=== PATIENT | male | born 1950 | race Hispanic/Latino ===

== ENCOUNTER 2020-10-31 17:30 | Emergency (ER) | payer OTHER ==
--- OUTSIDE RECORDS SUMMARY | 2020-10-31 17:34 | XMS REPORT | Continuity of Care Document ---
:1950 Author Organization [facility] t Address [address] [place] [address] Care Team Providers Name Role Phone NHAN TAVERAS Primary Care Physician Unavailable SKIP KILLIAN Attending Clinician Unavailable Dolores Killian MD Attending Clinician Ginny Botello MD Attending Clinician Chu GALEANO Attending Clinician CHU Attending Clinician Unavailable Monty DIAZ Attending Clinician Unavailable Yazan SMYTH Attending Clinician Jennifer DIAZ Attending Clinician Unavailable So GALEANO Attending Clinician Echo DIAZ Attending Clinician Unavailable ALCON Attending Clinician Unavailable Juan RN Attending Clinician Unavailable Alcon SO Attending Clinician Jessica DIAZ Attending Clinician Unavailable Dillard Attending Clinician DILLARD Attending Clinician Unavailable Darcy GALEANO Attending Clinician Unavailable DARCY Attending Clinician Unavailable Germaine DIAZ, K Attending Clinician Unavailable Dayne DIAZ, A Attending Clinician Unavailable Savannah DAVID Attending Clinician Unavailable Karla Mc MD Attending Clinician Savannah David MD Attending Clinician Millie GALEANO Attending Clinician Artemio DIAZ Attending Clinician Dolores KILLIAN Admitting Clinician Unavailable KARLA MC Admitting Clinician Unavailable Payers Payer Name Policy Type Policy Number Effective Date Expiration Date An[place] P[place] [id number] 2019 00:00:00 Problems Condition Condition Condition Status Onset Resolution Last Treating Co mments Source Name Details Category Date Date Treatment Clinician Date Hypertensi Hypertensi Disease Active M D on on 02-28 Anderso 00:00: n 00 Acute Acute Disease Active kidney kidney 02-28 Anderso failure failure 00:00: n 00 Bradycardi Bradycardi Disease Active M D a a 02-28 Anderso 00:00: n 00 Chronic Chronic Disease Active anemia anemia 1-10 Anderso 00:00: n 00 Hernia of Hernia of Disease Active abdominal abdominal 1-10 Noah rso wall wall 00:00: n 00 Personal Personal Disease Active Overview: history of history of 3-12 Added An derso colonic colonic 00:00: automatic n polyp polyp 00 ally from request for surgery [id number] Acquired Acquired Disease Active deformity deformity 6-07 Noah rso of pelvis of pelvis 00:00: n 00 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 Rafiq o of bone of of bone of 00:00: n hip hip 00 Peripheral Peripheral Disease Active M D neuropathi neuropathi 3-28 An derso c pain c pain 00:00: n 00 Hyperglyce Hyperglyce Disease Active M D josue josue 3-24 Anderso 00:00: n 00 Attention Attention Disease Active to to 2-04 Anderso colostomy colostomy 00:00: n 00 Rectal Rectal Disease Active [facility] 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 Family History Family Member Diagnosis Comments Start Date Stop Date Source Family member Coronary heart disease (CHD) MD Bea[place] Family member Diabetes MD Bea[place] Family member Hypertension MD [place] on Family member Stroke MD [place] Family member Venous thrombosis MD Hasmukh dunham Social History Social Habit Start Date Stop Date Quantity Comments Source History of tobacco Current every day MD [place] use smoker Sex Assigned At MD [place]roy on Exposure to Not sure MD Beavers SARS-CoV-2 (event) Cigarettes smoked 2020-10-25 2020-10-25 MD Noah alvarado current (pack per 00:00:00 00:00:00 day) - Reported Cigarette pack-years 2020-10-25 2020-10-25 MD Hasmukh dunham 00:00:00 00:00:00 Tobacco use and 2020-10-25 2020-10-25 Never used MD [place]roy on exposure 00:00:00 00:00:00 Alcohol intake 2020-10-25 2020-10-25 Current drinker MD Anna tabor 00:00:00 00:00:00 of alcohol (finding) Tobacco Comment 2017-10-04 2017-10-04 patient states he MD Beavers 00:00:00 00:00:00 smokes 4 cigs a day Alcohol Comment 2017-10-04 2017-10-04 6 beers (16 oz) MD Hasmukh dunham 00:00:00 00:00:00 per day Smoking Status Start Date Stop Date Source Current every day smoker 2020-10-25 00:00:00 MD [place] Medications Ordered Filled Start Stop Current Ordering Indication Dosage Frequency Signature Comments Components Source Medication Medication Date Date Medication? Clinician (SIG) Name Name peg Yes Colonoscopy Use as 3350-electr 3-31 planned directed A nderso olytes 00:00: by n (Golytely) 00 ordering [id number] provider. .74 g solution naproxen Yes TAKE 1 (NAPROSYN) 1-06 TABLET BY Noah rso 500 mg 00:00: MOUTH ONCE n tablet 00 DAILY AFTER A MEAL amLODIPine Yes TAKE 1 (NORVASC) 5 1-06 TABLET BY And erso mg tablet 00:00: MOUTH ONCE n 00 DAILY IN THE MORNING naproxen 2019-07- No Take by sodium 0-28 08-06 mouth as Anderso (ALEVE 09:56: 00:00 needed. n ORAL) 15 :00 irbesartan- 2018-07 Yes 1{tbl} Take 1 MD hydrochloro 2-20 tablet by And erso thiazide 00:00: mouth n (AVALIDE) 00 daily. 300-12.5 mg per tablet valsartan-h 2020- No 1{tbl} Take 1 M D ydrochlorot 6-22 08-07 tablet by An derso hiazide 00:00: 00:00 mouth n (DIOVAN-HCT 00 :00 daily. ) 320-25 mg per tablet omeprazole Yes 1{capsu Take 1 MD (PriLOSEC) 6-08 le} capsule by And erso 40 MG 00:00: mouth n capsule 00 daily. gabapentin Yes Peripheral 100mg Take 1 MD (NEURONTIN) 1-28 neuropathic capsule Anderso 100 mg 00:00: pain (100 mg) n capsule 00 by mouth twice daily. simvastatin Yes 1{tbl} Take 1 MD (ZOCOR) 40 8-23 tablet by Noah rso mg tablet 00:00: mouth n 00 daily. lisinopril Yes 40mg QD Take [address] (PRINIVIL,Z 7-15 by mouth [facility] - ESTRIL) 40 16:21: daily. Medic al [facility] tablet 36 Center simvastatin Yes 40mg QD Take [address] [facility] (ZOCOR) 40 7-15 by mouth [facility] tablet 16:21: daily. [facility] Immunizations Ordered Immunization Filled Immunization Date Status Commen ts Source Name Name Influenza (IM) 2016-08-11 Completed MD Arian roland Preservative Free 00:00:00 Vital Signs Vital Name Observation Time Observation Value Comments Source WEIGHT 2020-10-25 10:40:00 73.7 kg WEIGHT 2020-10-25 10:40:00 73.7 kg WEIGHT 2020-03-18 09:20:35 74.208 kg WEIGHT 2020-03-18 09:20:35 74.208 kg WEIGHT 2020-02-29 18:20:00 72.1 kg HEIGHT 2020-02-29 17:59:00 162 cm WEIGHT 2020-02-29 18:20:00 72.1 kg HEIGHT 2020-02-29 17:59:00 162 cm Heart rate 2020-10-25 18:05:00 62 /min MD Fran wayne Oxygen saturation in 2020-10-25 18:05:00 96 /min MD [place] Arterial blood by Pulse oximetry Systolic blood pressure 2020-10-25 18:00:00 157 mm[Hg] MD [place] Diastolic blood pressure 2020-10-25 18:00:00 78 mm[Hg] MD [place] Respiratory rate 2020-10-25 18:00:00 15 /min MD Hasmukh dunham Body temperature 2020-10-25 17:40:00 36.89 Rosana MD Hasmukh dunham Body weight 2020-10-25 15:40:00 73.7 kg MD Fran wayne BMI 2020-10-25 15:40:00 28.08 kg/m2 MD Fran wayne Body height 2020-02-29 22:59:00 162 cm MD Fran wayne Procedures Procedure Date / Time Performed Performing Clinician [facility] e PATHOLOGY BIOPSY 2020-10-25 17:16:00 Skip Killian MD on INTERPRETATION ENDOSCOPY NOTE RESULTS 2020-10-25 16:42:13 Skip Killian MD HC 2019-NCOV COVID-19 2020-10-02 19:39:00 Meir Sage MD And butch COMPLETE BLOOD COUNT W/ 2020-09-27 15:19:00 Sajan Rondon MD DIFFERENTIAL CARCINOEMBRYONIC ANTIGEN 2020-09-27 15:19:00 Sajan Rondon MD COMPREHENSIVE METABOLIC PANEL 2020-09-27 15:19:00 Robert Rondon MD Results CBC 2020-09-27 15:19:00 Sajan Rondon MD MANUAL DIFFERENTIAL 2020-09-27 15:19:00 Sajan Rondon MD GLUCOSE LEVEL 2020-09-27 15:19:00 Sajan Rondon MD BLOOD UREA NITROGEN 2020-09-27 15:19:00 Sajan Rondon MD ELECTROLYTE PANEL 2020-09-27 15:19:00 Sajan Rondon MD SERUM CREATININE 2020-09-27 15:19:00 Sajan Rondon MD .GLOMERULAR FILTRATION RATE 2020-09-27 15:19:00 Sajan Rondon MD CALCIUM LEVEL TOTAL 2020-09-27 15:19:00 Sajan Rondon MD Fran son ALBUMIN LEVEL 2020-09-27 15:19:00 Sajan Rondon MD ALKALINE PHOSPHATASE 2020-09-27 15:19:00 Sajan Rondon MD rson ALANINE AMINOTRANSFERASE 2020-09-27 15:19:00 Sajan Rondon MD ASPARTATE AMINOTRANSFERASE 2020-09-27 15:19:00 Sajan Rondon TOTAL PROTEIN 2020-09-27 15:19:00 Sajan Rondon MD FRACTIONATED BILIRUBIN 2020-09-27 15:19:[address] CHEST ABDOMEN PELVIS W 2020-03-17 21:34:27 Nhan Taveras MD CONTRAST COMPLETE BLOOD COUNT W/ 2020-03-17 18:58:00 Meir Sage MDrson DIFFERENTIAL COMPREHENSIVE METABOLIC PANEL 2020-03-17 18:58:00 Meir Sage MD Results CBC 2020-03-17 18:58:00 Meir Sage MD MANUAL DIFFERENTIAL 2020-03-17 18:58:00 Meir Sage MD [facility] GLUCOSE LEVEL 2020-03-17 18:58:00 Meir Sage MD ELECTROLYTE PANEL 2020-03-17 18:58:00 Meir Sage MD Anddomenicoo n SERUM CREATININE 2020-03-17 18:58:00 Meir Sage MD .GLOMERULAR FILTRATION RATE 2020-03-17 18:58:00 Meir Sage MD CALCIUM LEVEL TOTAL 2020-03-17 18:58:00 Meir Sage MD Fran son ALBUMIN LEVEL 2020-03-17 18:58:00 Meir Sage MD ALKALINE PHOSPHATASE 2020-03-17 18:58:00 Meir Sage MD rson ALANINE AMINOTRANSFERASE 2020-03-17 18:58:00 Meir Sage MD ASPARTATE AMINOTRANSFERASE 2020-03-17 18:58:00 Meir Sage TOTAL PROTEIN 2020-03-17 18:58:00 Meir Sage MD FRACTIONATED BILIRUBIN 2020-03-17 18:58:00 Meir Sage MD BLOOD UREA NITROGEN 2020-03-17 18:58:00 [facility]PREHENSIVE METABOLIC PANEL 2020-03-11 15:51:00 Robert Rondon MD GLUCOSE LEVEL 2020-03-11 15:51:00 Sajan Rondon MD BLOOD UREA NITROGEN 2020-03-11 15:51:00 Sajan Rondon MD [facility] ELECTROLYTE PANEL 2020-03-11 15:51:00 RondonSajan hurt MD SERUM CREATININE 2020-03-11 15:51:00 Sajan Rondon MD .GLOMERULAR FILTRATION RATE 2020-03-11 15:51:00 Sajan Rondon MD CALCIUM LEVEL TOTAL 2020-03-11 15:51:00 Sajan Rondon MD [facility] ALBUMIN LEVEL 2020-03-11 15:51:00 Sajan Rondon MD ALKALINE PHOSPHATASE 2020-03-11 15:51:00 Sajan Rondon MD [facility] ALANINE AMINOTRANSFERASE 2020-03-11 15:51:00 RondonSajan hurt MD ASPARTATE AMINOTRANSFERASE 2020-03-11 15:51:00 Sajan Rondon TOTAL PROTEIN 2020-03-11 15:51:00 Sajan Rondon MD FRACTIONATED BILIRUBIN 2020-03-11 15:51:00 Sajan Rondon MD BASIC METABOLIC PANEL, CALCIUM 2020-03-01 08:05:00 Teja Katz MD IONIZED MAGNESIUM LEVEL 2020-03-01 08:05:00 Teja Katz MD CALCIUM LEVEL TOTAL 2020-03-01 08:05:00 Teja Katz MD [facility] PHOSPHORUS LEVEL 2020-03-01 08:05:00 Teja Katz MD COMPLETE BLOOD COUNT W/ 2020-03-01 08:05:00 Teja [place] DIFFERENTIAL GLUCOSE LEVEL 2020-03-01 08:05:00 Teja Katz MD BLOOD UREA NITROGEN 2020-03-01 08:05:00 Teja Katz MD Fran [facility] ELECTROLYTE PANEL 2020-03-01 08:05:00 Teja Katz MD SERUM CREATININE 2020-03-01 08:05:00 Teja Katz MD .GLOMERULAR FILTRATION RATE 2020-03-01 08:05:00 Teja Katz MD CALCIUM IONIZED, VENOUS 2020-03-01 08:05:00 Teja Katz MD nderson Results CBC 2020-03-01 08:05:00 Teja Katz MD MANUAL DIFFERENTIAL 2020-03-01 08:05:00 Teja Katz MD Fran son URINALYSIS MICROSCOPIC 2020-03-01 02:20:00 Teja Katz MD PROTEIN / CREATININE RATIO 2020-03-01 02:20:00 Curtis Pinto URINE UREA NITROGEN URINE 2020-03-01 02:20:00 Curtis Pinto MD son URINALYSIS WITH MICROSCOPIC IF 2020-03-01 02:20:00 Cynthia David MD INDICATED COVID-19 (SARS-COV-2) 2020-02-29 19:20:00 Estelle Dior MD PCR-ASYMPTOMATIC MC US RENAL 2020-02-29 16:42:54 Xavier, Rochelle [place] on URINE CULTURE 2020-02-29 16:38:00 Xavier, Rochelle [place] on URINALYSIS WITH MICROSCOPIC IF 2020-02-29 16:38:00 Xavier, Rochelle [place] INDICATED SODIUM URINE 2020-02-29 16:38:00 Xavier, Rochelle [place] on CREATININE URINE, RANDOM 2020-02-29 16:38:00 Xavier, Rochelle [place] URINALYSIS MICROSCOPIC 2020-02-29 16:38:00 Xavier, Rochelle [place] BASIC METABOLIC PANEL, CALCIUM 2020-02-29 15:59:00 Xavier, Rochelle [place] TOTAL MAGNESIUM LEVEL 2020-02-29 15:59:00 Xavier, Rochelle [place] on PHOSPHORUS LEVEL 2020-02-29 15:59:00 Xavier, Rochelle Peters son GLUCOSE LEVEL 2020-02-29 15:59:00 Xavier, Rochelle [place] on BLOOD UREA NITROGEN 2020-02-29 15:59:00 Xavier, Rochelle ruizson ELECTROLYTE PANEL 2020-02-29 15:59:00 Xavier, Rochelle Zamora rson SERUM CREATININE 2020-02-29 15:59:00 Rochelle Mc MD Fran son .GLOMERULAR FILTRATION RATE 2020-02-29 15:59:00 Rochelle Mc MD CALCIUM LEVEL TOTAL 2020-02-29 15:59:00 Rochelle Mc MD derson POC CREATININE 2020-02-29 13:40:00 Rochelle Mc MD on COMPLETE BLOOD COUNT W/ 2020-02-29 13:13:00 Nhan Taveras MDrson DIFFERENTIAL BILIRUBIN TOTAL 2020-02-29 13:13:00 Nhan Taveras MD ALANINE AMINOTRANSFERASE 2020-02-29 13:13:00 Nhan Taveras MD ALKALINE PHOSPHATASE 2020-02-29 13:13:00 Nhan Taveras MD rson SERUM CREATININE 2020-02-29 13:13:00 Nhan Taveras MD BLOOD UREA NITROGEN 2020-02-29 13:13:00 Nhan Taveras MD Fran son CARCINOEMBRYONIC ANTIGEN 2020-02-29 13:13:00 Nhan Taveras MD IRON LEVEL 2020-02-29 13:13:00 Nhan Taveras MD FERRITIN LVL 2020-02-29 13:13:00 Nhan Taveras MD TRANSFERRIN 2020-02-29 13:13:00 Nhan Taveras MD VITAMIN B12 LEVEL 2020-02-29 13:13:00 Nhan Taveras MDo n FOLATE LEVEL 2020-02-29 13:13:00 Nhan Taveras MD Results CBC 2020-02-29 13:13:00 Nhan Taveras MD MANUAL DIFFERENTIAL 2020-02-29 13:13:00 Nhan Taveras MD Fran son SERUM CREATININE 2020-02-29 13:13:00 Nhan Taveras MD .GLOMERULAR FILTRATION RATE 2020-02-29 13:13:00 Nhan Taveras MD EKG, 12-LEAD (PORTABLE) 2020-02-29 00:00:00 Rochelle Mc COMPLETE BLOOD COUNT W/ 2019-12-28 13:20:00 Nhan Taveras MD nderson DIFFERENTIAL CARCINOEMBRYONIC ANTIGEN 2019-12-28 13:20:00 Nhan Taveras MD BILIRUBIN TOTAL 2019-12-28 13:20:00 Nhan Taveras MD ALANINE AMINOTRANSFERASE 2019-12-28 13:20:00 Nhan Taveras MD ALKALINE PHOSPHATASE 2019-12-28 13:20:00 Nhan Taveras MD Noah rson SERUM CREATININE 2019-12-28 13:20:00 Nhan Taveras MD BLOOD UREA NITROGEN 2019-12-28 13:20:00 Nhan Taveras MD Fran son Results CBC 2019-12-28 13:20:00 Nhan Taveras MD MANUAL DIFFERENTIAL 2019-12-28 13:20:00 Nhan Taveras MD son SERUM CREATININE 2019-12-28 13:20:00 Nhan Taveras MD .GLOMERULAR FILTRATION RATE 2019-12-28 13:20:00 Nhan Taveras MD Plan of Care Planned Activity Planned Date Details Comments Source Future Appointment 2023-10-26 00:00:00 Skip Killian MD, [address] [place] [address] Encounters Start End Encounter Admission Attending Care Care Encounter Source Date/Time Date/Time Type Type Clinicians Facility Department ID 2020-10-25 2020-10-25 Outpatient OSMAR KILLIAN MDA Princess/Hep/Nu [id number] 09:00:00 13:23:00 SKIP roland 2020-10-24 2020-10-24 Outpatient MEIR CASTANEDA MDA, MDA [id number] 07:27:57 07:27:57 Rafiq o luan 2020-10-03 2020-10-03 Outpatient MEIR CASTANEDA MDA, MDA [id number] 07:11:32 07:11:32 Rafiq o luan 2020-10-02 2020-10-02 Outpatient MEIR CASTANEDA MDA, MDA [id number] 13:22:33 13:42:30 Rafiq o luan 2020-09-30 2020-09-30 Outpatient MEIR CASTANEDA MDA, MDA [id number] 09:09:50 09:25:46 Rafiq o luan 2020-09-27 2020-09-27 Outpatient EL RONDON, MDA MDA [id number] 08:46:19 09:13:14 SAJAN roland 2020-03-22 2020-03-22 Outpatient EL DILLARD, MDA MDA [id number] 00:00:00 00:00:00 MECHE roland 2020-03-18 2020-03-18 Outpatient EL SHUREQINGI, MDA MDA [id number] 08:40:52 10:07:54 NHAN roland 2020-03-17 2020-03-17 Outpatient MEIR CASTANEDA MDA MDA [id number] 13:53:30 23:59:00 Rafiq roland 2020-03-17 2020-03-17 Outpatient EL SHUREIQI, MDA MDA [id number] 13:32:21 13:52:00 NHAN roland 2020-03-17 2020-03-17 Outpatient MEIR CASTANEDA MDA MDA [id number] 00:00:00 00:00:00 Rafiq roland 2020-03-11 2020-03-11 Outpatient OSMAR RONDON, MDA MDA [id number] 10:41:52 10:47:16 SAJAN roland 2020-03-04 2020-03-04 Outpatient EL RADHAUREQINGI, MDA MDA [id number] 00:00:00 00:00:00 NHAN roland 2020-03-03 2020-03-03 Outpatient EL SHUREIQI, MDA MDA [id number] 00:00:00 00:00:00 NHAN roland 2020-02-29 2020-03-01 Outpatient UR DAVID, MDA Emergency [id number] 10:25:00 14:57:00 DWIGHT roland 2020-02-29 2020-02-29 Emergency MDA MDA [id number] MD 10:50:01 10:50:01 Rafiq roland 2020-02-29 2020-02-29 Outpatient EL SHUREIQI, MDA MDA [id number] 08:16:00 10:24:00 NHAN roland 2020-02-29 2020-02-29 Outpatient EL SHUREIQI, MDA MDA [id number] 07:55:33 08:15:00 IMAD Rafiq o n Results Test Description Test Time Test Comments Results Result Comments Source Pathology Biopsy Interpretation 2020-10-30 16:49:00 Test Item Value Reference Range Interpretation Comme nts Addendum b8rlcWWwUTLcnHT1BzTsMTTcl2lvr0BdfOObkFUnFSoswEJasgQrty01qJI9cJ67LM2cCZLvOlK1DKDq cnO6Muo8SJLnYFXvjPCcJ322w0xth8dbriYooUR0hWjmTREnQLLpMKpyKFKzQlMcEMyzYOHboaUzGYHf MKXkrOvzjN6qrfxfRxEhkLw2SzH4NVIthC9qEYVcafO 1 (test tfgOdjVGpMOP6RZbuPIDgYNXggOBwgu9yqOUjQkCop6mmEXijJTDmHBmyRVCdYM0nxCSbcXjhwZV9tQX dQNjrD15ej8dmNAXfglDsgyMsYHodRAUnJHNDIQ6UUGCwcSNcrg0axHGbHTHubc0= code = 37) Submitted h7bndJFpYPBfwDU6EyRxFQOdz1vhd4LypKBsuXSbQWcynDZfhiCsuh07wQQ9eU82EQ8dKSKvBhI4AGLg gbL1Ncs2UTFyLCMtwVPzI017f8dtq9ictdUrtVB6TIKeJOS3TEjnirTsgmC6VQsijXLwYbV6P68peHVh ZOdvsIFrvvfjaaZyZWYaO7QyJFGfQECoyxUqawOvSIi Clinical nu6Mtmyuoz6JnK30jw99iAbEfh7y0oCCyXsi8ZvBwTI2jBXZcY9IypVVxUQ5kWMDpM9RbTX3mJ8ilYxL kbDDpSFUtc4MjELHACpnmSFBcW4dcMrXadKCxjJVmDQJpyt5= History (test code = 37904) Diagnosis h0qubIUcXDTwfOJ5UsYvQMUza6wja2TizTIjtAYeYQjwpBRowhBfrs27aBU7yX78RP5gAXJlDqU2GFQs lwT5Cip2CNGeYVKkxDSyM752r1rgz5fzlcPwzXT0GRBxHBB1IHygzhFuafUvYvs1XSB6uHjrYBFfWWAe VYlyXZCmSrQkUxzcDvCaALTAWmHXWL2MWcMVQVGQRFV (test JFSEfDExvZBEqOnUrFdPmITppOfHhrBKiVDO3PHXsbZ4rXEPbb9IzjkZlrjyeA90jw90qEQHeNlE5m4T gB72rhRHoaglyLvzkoXC5AtjkEIIeoFu8NzTgtIcwAhBwJNAbjM3koSYfsKAen5YaYTdmdMzvvIZblTa om7PbdIOgiqkcsPq5qLYcTBAnfYT3PUSps6Lqt8Kcuu code = elrFQddG8eBJCaj2XezPQiapU1gPDdqLwqoMidBUHoSN0whrQnpPNzoDRaLPQwwG9wgJ3bjBMzdCMhiG Sra2cxLANzdpPkwjVyC4LtevLbUPJcgZjowQmgeRQwfNDsK0VpXvcehH0fFM0gK1W8pVXhJEWqjrZeww IgvCacfRNvQB7bTBI5a6XtIANgDE3puIzqZAOZVPFNG 34) cChvY65kr1esPVqkeSdccPkSBhcqOg4SW8jjYAxQDFoZXNjc48iPA63BzVwkSogOZtySBBxmSatLCckp uNpCattD10wn94oIZMtAK1damHvb1YmE06ec74kRQXbHjE6z9IcH90veIDlupwiVcgubOP4WnctZCOnd Gw0GpHciHdjSbEvDMOgjG7ynNExcTEbt1DfARynkHxc wRQxiKirw3CzaLRzvokepKs3bJUrDZPjfWS2PXJaw6Ylg0EpixodlNWbsH6lTQYot5HnpLWzzeI5oCTd gHgdcDbvENZlurCzhfKjJ0PcwhAhAZNioAfciNopjIQwqWKbB2LdQncgeP8kMX8wC1T4aNYcIJHyrzSv uyQfiRduwECoTN4vDDY5g2EjZMKuGG1tzEwbUXZJIME vC53tsZUhdR4aaNKfHXWwytltmZMeyMbrPEBQYbFBg1hrdorjhJJafyT2NCUcBYLxc2cyebSnm9b2cGH shGVkELOir0SqtZaorXOsFMljPqNxIAnngnizZENXamRgrIFisDXio5PklGNcmKlhkoVuSJUwp98yyqy rVONad5PdYPNxRRC3lNQqQQNwnEY4gTEnsinzD8X7iM AuNWDjJ8Nxm0IxCNCpxeCsyKAqvE1iYEFvz3IawZMcfeN5pOGqwBpgcArpRxcuWUIeVPKSYKCxqC8ncA 0dv7YgeQ4rhSPcrsXhOWOmtrLsLTwogwIslARmXBgkOPrgcI1iCYR6SXTobI6mZLWtj4XkJOpeJQLdW3 GiLTecIkTkn8dxbwxgUwcnrDO0NrcdYJWodUu8MaIlc DmyZiDqMTUdhO2nqSZkiPBng2HvSEharOpcAm4uGEdcD2R1qNMriSosDONpSZCdMT4xkwWjcOHicRHdK USnHFE8on4qnWlcmMJeXEjklfCdDg7rAWofSB33kH0sQCWbh6XyMPyuoBtcr4jbOfnrPMH2 Comment u2mxfKQkCBUqjFS4LoXnSJHar2auy4QnyRUopQSyBYtwwXBvycZdzs65oOP4pR29XT8fZQCwGqW4FKOk dpL3Wqp5YMCcCCMxfRUaQ802v8gia1nkxfHfiTJ0lHdhXESuCSBlLAfuAOWhLtSePSduMEupl7NopDA8 rN4mp5lfZ1PwHDVtAK3zEFExtJ0geTyaNJDirK4lmIU (test dzPJwn0WsRNMpKOFbd13miVKwoKUgF2wsobBvFNxuEdYbTfTxZW1mYWKwKLIkaQBnPEVyvjNyGMivLPc kW38tx5EwWScwM3y8QQBtVZ8pOROtFoBybT5bCME8nC47khGebBoqcZ7fqMvmSuMmCmMgzKJiJBAhVW1 0PWOxrOG3KYXnKGDnARS6d7reppRhGVloPeMlIhEhc6 code = XfUQ8kMC6uqpyabtzazQMpc3YrjXxxNxWinjDfZB9iEQSmiqaoHl81UIyyUAmuZVGiZWcirySkMO9piG FyfQ== 9835) Gross w0pavQGgOUAinSYNHNFfNCifiwNvEXHcbOTsE9UwkhrtQEkxTU4lFX9toWwggXCppZWsKX9ANMMwPvFb CPWuhWFixjZwGgZiXKQdcIGmdCO3UFSeKQ8zwlkgNKriTEkcYZRjmaZ9PLYasKFhJ1FpKITiIP2wixcb UDM9RNysjJ8pjeOWRfagVh6xzDPdgUaiJqVbWaIgAHI Descripti jDZMhPXKsrOerZUYrMPh2rI9IHhueYAX4LIELJwhxLCGkDZ4Kj7diVWZzqIWaMZW5FXpjbQDcNZZyWZR iORv9XWIcUKsssZQuGR3tnYvyZzbzwDyrn4TluQYmQKipBCDsKBHcSJhkEDJpNA9PHiSjQZFwGkY6CRs pHVx5DYx1OE1UUxTpLJJbXQh0MGX5StXtFVq8VAveTW on (test 2KWKjsYgAqBuu6NKF5RRY5IJKxFOUmAnKvUQTrHGFrKKeiUTdpqnTtCFHdGHUaUJgmZhbqQCjdB57ntX yybR2gPzexxmChCMQ9RPCnljZGRoenmRGjeyyikJfrHvBmsUXrJzEbUGivjZRreEApUZrmsoKhmcgzKO VOFicieXZmwMczDGGzVyDfC20yn56vQAZwZ8GmFZseS code = tDew2swnwicHYeePcDsEGCst9jbtFbgFklfEKFaN05kf5oyvVFdRnVnpDr8iJTjBEYzylYbwQUjpLDaq 8AjrMZrSRBlg6amYDVxXdZglMcrd7QjOI9zFLM7fvosGuZkPwScBO8sDJWdIVLtH3ivKSRxwiJjeaIlk MLjbWTjzOY6AWAmsV4aYQIcBCVtwAQiuTNxiZjzSoyz 980078240 nWE9QEduLhgbjE8vvNQOFMCAFzqOHufaffAvTI8NFN1LAdOLAP06SmUoURV6ESeUN0MBpKB1Jaf8ZYm5 zEazMvgqarWpzVAsKhVOiA6KVrzkBdebuVJ3XZoiXzioxO4dvGGDALIHGarRJcavxxBhBU4PYO9VIQ1U fLRmMOZ0iZD9JRRCBvoluUB8lBL7jM34AXAkYBYwmVM 1) rONazR938CPJjKLqhMIs3eoKhKTHpRpTqPQmakYfpjU0sXIEdP19ml9TYd5WeAGFgUQsdm4hdqTyoe4B rhVPvTPbtHPTvpJEhGKkyeO9iBeMje0kyvZl6URgwcmR1UEYkxm2PTrzoQebfqQphh4RiiIFjWXbwTZX rOHWnRMcaIPGxPF6YTpQxLEQhHdQ3MXsoTAr5IPj9EP 8BQdZpFABhWYw0VVR1IeWxXSs6DVegLY6HNLksXqZxBCP5JPP9TUD5GAApIZIkMwHhKDBgKYIjVPuiYQ snlvJcBHWtINMtKUqgFdcwNLsgJ26yIdonztOlWJW1OBQsyoUNXpibzIOrfwrbdNmkGhYyhIImVtVoIQ pcbHRycGFyXGxpbjBccmluMCANClxsdHJjaFxiXGZzM [file] HamXXlGNA6LN0jsV5GyM== Disclaime l6jujUAtJDDqsRDfOvPrVLAlMRZxh1apZNZbqZOtLsIhMqAhJuTpKauenQMeQKPgSfPan9two082kZIc s1loTOVgPwS1dBQsFXOdfMDdT290YBNxSAafz8raj1HdPCFpfUDpq3P0ACJEqxeymCp9fBqvS70rw6Y8 HijnX0iqVCMhCXIcK0UqAZ0sJXCkEhx3TPH2SGD2TUI r (test jGTBvE9WuHI1qRKNtpCCbIBr1v6vmpYtnUIMkXXS5l1goNDrgsqIhTM3bcm8prJo5v1demaOnCSHtJXH vbYDIUOTvX0IogQniYw3inOh9zIouQsmqCBP3Sob7JD1zna12hck8dYtlAXCliadlRrS1PRrpJLMkvll hUDy8GHriBAHthUJ6HMMhxJOdA5KcDPAyES4qhxn3ZQ code = A7GKwhAXPtSkR0VEGqvNWvEXGgnAviTZlxj418XAD9JgLiUL7fA5Avy4M0kL4fkCEkGZJuzBIxUcQlTU Feul2oxFNbMTbmx5WlAZZ5xxN5jONtvPRaISWkGU79Cgbzt2FwYhkyNMS1MYOxcqGqc0Rqf6kiLgWeak ZvC0jnG4JkBIYwHTPyAPRvVwQeblBer1Rpm4KicZVay 9844) Ya0x1jlKSXgFFPdoXnsz0paUPE4JJNwU0Z1gBOhn7zcRBsxONCwuGR6ejG6QUDanVHrT7MhyO0lXSBkY H6ujnh3g5qgCHP7IMmyBCPiFuN1clL0FOWyvALhPOEqwXylCAobj399GHW0InBmCDJcv1VsB0ZfdLdkQ 06czDymE28hXRInnYrpbF0suEviqN9rDfXcFlObKHkg wAudtTVffvhdZCosumZ5LGwdewtvDHShPHzwL7abMyCuRDRmlNieYWwnf6XsLJVgKEApDyyinlC7VTKQ h78pUZUyx8WsYAUusB3yuWHhMNmzccPktZM6PDirqgQsJyQrzkWtXXIvrN2uNZUdFM8jJXQozgIwrs4m lzOcMIBiAGMoA8AftcytuTcgpgKfXYGeml1tdjWhJRM 4FOYDJB6EWIKcWOVau99mQYPkoAfwzJ7rcBGpraXdBJWaf5KmlN2ubQMKKUAhM8gqWP9gRNxdj0ChbTT plDCbeZY5SGFvy3LbBhBppjJeuGMmdOEqS2OdeFbeD7goZSMaRBJtkzPlaGZpy3WbLIZngQK9nGZoTZ2 OEtUEs51uFQDjLPEApmUgAGNghGqrjYZ6ukU3hX2rAh GDQlLyzTRrjXWdXygeXSPqx095us6udfH0ATFtAAPkxhtyr3HgNYFhEQBfvF45DERxHAScyb7gaqbwpH IgegBmQ6Vphiw2rG7yKXOcFBpkRDXgMHLrHlPdhINcAsMvDmWjrBdwyHwjRPwkXcCoFWRoLCfwP1nbSk FcZnMyMlxwYXJ9 AndersonENDOSCOPY NOTE [id number] 16:42:13Skip Killian MD - 10/25/2020 11:42 AM CDTPatient Name: Mauri GrayGender: EmekaMRN: [id number]: 69Procedure Date No Time: 10/25/2020Instrument Name: 3192 COLON - CFProceduralist(s): Roseanne GILLESPIEedmeng Name: ColonoscopyScope In: 12:12:37 PMScope Out: 12:26:27 PMScope Withdrawal Time 0 hours 10 minutes 16 seconds Total Procedure Duration Time 0 hours 13 minutes 50 seconds Indications: High risk colon cancer surveillance: Personal history of rectal cancer post APRMedications: TIVAProcedure Description: Pre-Anesthesia Assessment: - Prior to the procedure, a History and Physical was performed, and patient medications and allergies were reviewed. The risks and benefits of the procedure and the sedation options and risks were discussed with the patient. All questions were answered and informed consent was obtained. Patient identification and proposed procedure were verified by the physician in the pre-procedure area. Prophylactic Antibiotics: The patient does not require prophylactic antibiotics. Prior Anticoagulants: The patient has taken no previous anticoagulant or antiplatelet agents. ASA Grade Assessment: I - A normal, healthy patient. After r eviewing the risks and benefits, the patient was deemed in satisfactory condition to undergo the procedure. The anesthesia plan was to use TIVA. Immediately prior to administration of medications, the patient was re-assessed for adequacy to receive sedatives. The heart rate, respiratory rate, oxygen saturations, blood pressure, adequacy of pulmonary ventilation, and response to care were monitored throughout the procedure. The physical status of the patient was re-assessed after the procedure. Informed consent was obtained. Throughout the procedure, the patient's blood pressure, pulse, and oxygen saturations were monitored continuously.The Olympus CF-AB525I ([id number]) adult colonoscope was introduced through the stoma and advanced to the cecum, identified by appendiceal orifice and ileocecal valve. The appendiceal orifice and the stoma were photographed. The colonoscopy was performed without difficulty. The patient tolerated the procedure well. The quality of the bowel preparation was excellent.Findings: End sigmoid stoma Two polyps were found in the transverse colon. The polyps were 2 to 3 mm in size. These polyps were removed with a jumbo cold forceps. Resection and retrieval were complete. Diffuse mild inflammation characterized by granularity and loss of vascularity was found in the transverse colon and in the ascending colon. Biopsies were taken with a cold forceps for histology.Complications: No immediate complications.Estimated Blood Loss: Estimated blood loss: none.Post Procedure Diagnosis: Sigmoid stoma- Two 2 to 3 mm polyps in the transverse colon, removed with a jumbo cold forceps. Resected and retrieved. - Diffuse mild inflammation was found in the transverse colon and in theascending colon. Biopsied.Recommendation: - Repeat colonoscopy in 3 years for surveillance. - Patient has a contact number available for emergencies. The signs and symptoms of potential delayed complications were discussed with the patient. Return to normal activities tomorrow. Written discharge instructions were provided to the patient. - Resume previous diet. - Continue present medications. DC to homeAttending Participation: I personally performed the entire procedure.SKIP KILLIAN MD10/25/2020 12:41:35 PMThis report has been signed electronically.Number of Addenda: 0MD AndersonMD COVID-19 (HEAVEN-CoV-2) PCR [id number] 12:23:41 Test Item Value Reference Range Interpretation Comments COVID19 SARS Pre-Out of OR Procedure Indication (test code = 50323) COVID19 SARS Result Detected Not Detected A (test code = 32803-7) COVID19 SARS SARS-CoV-2 Detected. Interpretation (test Reference Range: Not code = 81864) Detected Methodology: The Son RealTime SARS-CoV-2 assay is a qualitative real-time reverse tariff expert polymerase chain reaction (lab director-PCR) test to detect RNA from SARS-CoV-2 in nasal, nasopharyngeal and oropharyngeal swabs from patients with signs and symptoms of infection who are suspected of COVID-19 by their health care provider. The Son RealTime SARS-CoV-2 performed on the FirmPlay000 System is a dual target assay with primers and probes for the RdRp and N genes. Results must be interpreted within the context of all relevant clinical and laboratory findings, and epidemiological risk factors. Positive results are indicative of the presence of SARS-CoV-2 RNA; clinical correlation with patient history and other diagnostic information is necessary to determine patient infection status. Positive results do not rule out bacterial infection or co-infection with other viruses. Negative results do not preclude SARS-CoV-2 infection and should not be used as the sole basis for patient management decisions. The Son RealTime SARS-CoV-2 assay is for in vitro diagnostic use under FDA Emergency Use Authorization only. Testing is limited to laboratories certified under the Clinical Laboratory Improvement Amendments of 1988 (CLIA), 42U.S.C. 263a, to perform high complexity tests. The Test was performed by the CLIA-certified, high-complexity Molecular Diagnostics Laboratory (MDL) at [facility] under the Food and Drug Administration (FDA) s Emergency Use Authorization. Factsheet for patients: https://www.[employer].or g/SingleHopFactSheetPatients Factsheet for healthcare providers: https://www.[employer].or g/SingleHopFactSheetHCP Test performed by:The [facility] [id number] [place] [address] Lab Interpretation Abnormal (test code = 69521-3) [facility] [id number] 13:38:47 1. There is a new small 5 mm pleural-based nodule in the left upper lung that has the appearance of representing an inflammatory nodule that should be followed. Other tiny nodules are stable. 2. Apart from the above, there is no evidence of metastatic disease in the chest abdomen or pelvis. 3. Extensive surgical changes are evident with cystoprostatectomy and right lower quadrant ileal conduit, and abdominal perineal resection with descending colostomy. Interface, Radiology Results In - 03/18/2020 8:40 AM CDTFULL RESULT:Examination: CT CHEST ABDOMEN PELVIS W CONTRAST, 03/17/2020 4:34 PMClinical History: Rectal cancerSecondary malignant neoplasm of soft tissues of pelvisIndication: restagingComparison: 03/20/2019Technique: CT of the chest, abdomen, and pelvis was performed with intravenous contrast.Findings: CT thorax:A 3 mm indeterminate nodule is seen in the right lower lung on image 103 ofseries 12 that is unchanged. A 2 mm nodule is seen in the left upper lung on image 40 of series 12 that is unchanged. A new 5 mm pleural-based nodule is seen in the left upper lung on image 60 of series 12.The heart and great vessels are normal.No mediastinal or axillary lymphadenopathy is seen.Mild degenerative changes are seen in skeleton.CT abdomen/pelvis:A 9 mm hypervascular lesion seen during the arterial phase of imaging in liver segment 2 on image 297 of series 14 that is again seen on image 27 of series 15 during the venous phase and is thought to represent a flash filling hemangioma or focal nodular hyperplasia. Focal steatosis is seen in liver segment 5 on image 46 of series 15 that is slightly more prominent. No new liver lesions are seen.The gallbladder, spleen, pancreas, and adrenalsare normal.Cortical scarring is seen in both kidneys but especially in the mid right kidney on image61 of series 15. A 16 mm cyst is seen in the mid right kidney in the area of scarring on image 59 ofseries 15. A 16 mm exophytic cyst arises from the lower pole of the right kidney on image 68 of series 15. Note is made of several accessory right renal arteries. Both kidneys function with excretion of contrast.The abdominal aorta and its branches are patent. No abnormal lymphadenopathy is seen in the abdomen or pelvis.The patient is status post cystoprostatectomy and abdominal perineal bowel resection. A descending colostomy is seen on image 107 of series 15 with a moderate amount of feces in the left side of the colon. A right lower quadrant ileal conduit is seen on image 94 of series 15.There is no evidence of ascites are peritoneal masses.Mild degenerative changes are seen in skeleton.IMPRESSION:1. There is a new small 5 mm pleural-based nodule in the left upper lung that has the appearanceof representing an inflammatory nodule that should be followed. Other tiny nodules are stable.2. Apart from the above, there is no evidence of metastatic disease in the chest abdomen or pelvis.3. Extensive surgical changes are evident with cystoprostatectomy and right lower quadrant ileal conduit, and abdominal perineal resection with descending colostomy.[facility] [id number] 22:00:50 Test Item Value Reference Range Interpretation Comments Final Report (test code 10 - 50,000 cfu/ml A = 8488) Mixture of three or more enteric organisms present. Further identification upon request within 5 days. Path Review - Urine The results have been A (test code = 8483) reviewed and electronically signed by Pathologist:Mack Infante MD, PhD #[id number] Lab Interpretation Abnormal (test code = 48222-8) MD BeaversMagnesium [id number] 08:39:36 Test Item Value Reference Range Interpretation Comments Magnesium (test code = 6359) 2.2 mg/dL 1.6-2.6 MD BeaversPhosphorus [id number] 08:39:35 Test Item Value Reference Range Interpretation Comments Phosphorus (test code = 6817) 3.6 mg/dL 2.5-4.5 MD BeaversCalcium Ionized, [id number] 08:13:25 Test Item Value Reference Range Interpretation Comments V Ion Ca (test code = 37212-8) 1.15 mmol/L 1.15-1.29 MD BeaversCOVID-19 (SARS-CoV-2) PCR-Asymptomatic [id number] 05:30:38 Test Item Value Reference Range Interpretation Comments COVID19 (SARS Not Detected Not Detected This test is a CoV-2) Result qualitative (test code = reverse-transcr iptase 52528-0) polymerase frankie n reaction (RT-PC R) developed for t he Ortho[employer] LISSETH 680 0 system and inte nded for the detecti on of SARS CoV-2 RNA in human nasophary ngeal specimens from patients who me et COVID-19 clinic al and/or epidemiological criteria. This assay has been approv ed by the FDA for use only under Emergency Use Authorization ( EUA) in laboratories that have been CLIA-certified to perform moderate-comple xity and high-comple xity tests. The performance characteristics of this assay were verified by the Microbiology Laboratory at [facility]. Results must be interpreted within the context of all relevant clinic al and laboratory find ings and should not form the sole basis for a diagnosis or treatment decision.Sign Installer al controls are in cluded to assess for possible amplification inhibitors. If inhibition is detected, testi ng is repeated and if inhibition is confirmed the specimen is res ulted as "Invalid". "Inconclusive" results are due to partial amplifi cation of SARS-CoV-2 t argets and indicates l ow amounts of viru s present in the specimen at or near the limit of detection. Whe n an "Invalid" or "Inconclusive" results occur, it is recommended to wait 3 days before submitting a ne w specimen for te sting if clinically indicated. COVID19 SARS CORPORATE TRAVEL CONSULTANT Swab Source (test code = 87914) COVID19 SARS Inpatient Indication (test Admission code = 95822) MD BeaversUrinalysis with [id number] 03:28:07 Test Item Value Reference Interpretation Comments Range UA WBC (test code = 47 See_Comment H [Automa chrerie 7904) message] The system which generated this result transmitted reference range : 0 - 2 /HPF. The reference range was not used to interpret this result as normal/abnormal . UA RBC (test code = 15 See_Comment H [Automa cherrie 7891) message] The system which generated this result transmitted reference range : 0 - 2 /HPF. The reference range was not used to interpret this result as normal/abnormal . UA Mucous (test code NOT SEEN TRACE /HPF = 7887) UA Bacteria (test NOT SEEN NOT SEEN /HPF code = 7870) UA Squam Epi (test NOT SEEN OCC /HPF code = 7896) RADHA (test code = ileal conduit Some RADHA) reporting parameters within the Urinalysis test have changed due to the implementation of new instrumentation in the [facility], allowing greater sensitivity of measurement. Urinalysis results reported by the [facility] using existing instrumentation, as well as Urinalysis testing performed manually or by backup methodology at the [facility] will remain relatively unchanged. New reporting parameters and units will now be reported for all campuses. Some reporting parameters within the Urinalysis test have changed due to the implementation of new instrumentation in the [facility], allowing greater sensitivity of measurement. Urinalysis results reported by the [facility] using existing instrumentation, as well as Urinalysis testing performed manually or by backup methodology at the [facility] will remain relatively unchanged. New reporting parameters and units will now be reported for all campuses. Lab Interpretation Abnormal (test code = 37754-9) MD BeaversProtein/Creatinine Ratio [id number] 03:18:26 Test Item Value Reference Range Interpretation Comments UTP Ran (test code = 29 mg/dL Normal range not 7922) available for collections les s than 24 hours in [facility]. U Creatinine (test 75.7 mg/dL 40-278 The refer ence range code = 7725) listed is for f irst morning urine collection. U Prot/Creat (test 0.38 Normal ra nge not code = 7805) available for collections les s than 24 hoursin dura tion. MD BeaversUrea Nitrogen [id number] 03:18:25 Test Item Value Reference Range Interpretation Comments U Urea (test code = 688 mg/dL Normal r laurence not 7820) available for c ollections less than 24 ho urs in duration. MD BeaversUrinalysis w/Microscopic if [id number] 03:11:35 Test Item Value Reference Range Interpretation Comments UA Color (test code = 7877) Yellow Yellow UA Appear (test code = 7868) Clear Clear UA Glucose (test code = 7881) NEG NEG mg/dL UA Bili (test code = 7871) NEG NEG UA Ketones (test code = 7884) NEG NEG mg/dL UA Spec Grav (test code = 7894) 1.015 1.002-1.035 UA Blood (test code = 7872) Moderate NEG A UA pH (test code = 7909) 6.0 4.5-8.0 UA Protein (test code = 7890) 30 mg/dL NEG A UA Urobilinogen (test code = 7903) NEG NEG UA Nitrite (test code = 7888) NEG NEG UA Leuk Est (test code = 7886) Trace NEG A Lab Interpretation (test code = Abnormal 29843-1) MD BeaversCreatinine [id number] 18:25:05 Test Item Value Reference Range Interpretation Comments U Creatinine (test 97.5 mg/dL 40-278 The refer ence range code = 7725) listed is for f irst morning urine collection. MD BeaversSodium Level, [id number] 18:25:04 Test Item Value Reference Range Interpretation Comments U Sodium (test code = 85 mEq/L Normal range not available 7809) for collections less than 24 hours in [facility]. MD BeaversPOC [id number] 17:40:48 Test Item Value Reference Range Interpretation Comments POC Crea (test code 2.1 mg/dL 0.6-1.3 H Medicati ons, especially = 22622-5) hydroxyurea or supplements, junior ch as ascorbate, can interfere with test resul ts causing a falsely and significantlyhi gher result than exp ected. If a problem is junior spected with a patient' s result, [facility]. POC eGFR-AA (test 36 See_Comment L Normal eGF R >= 60 code = 29046-6) mL/min/1.73 m2 The eGFR is calculated u sing the CKD-EPI equatio n. The eGFR declines w ith age. eGFR <60 mL/min /1.73 m2 is considered a s "decreased" Thi s equation should only be used for patients 18 and older. According to e National Kid[employer] on's Kidney Disease Outcome Quality Initiat soila (KDOQI) classif ication and 2012 Kidney Disease Improving Globa l Outcomes (KDIGO) Clinica l Practice Guideline, the stage of CKD should be c ategorized based on estima cherrie GFR. Stage Descripti on GFR mL/min/1.73 m21 Kidney damage with nor mal or high GFR >= 902 Kidney damage with mil d decrease in GFR 60-89 3a Mild to moderate decrea se in GFR 45-593b Mode rate to severe decrease in GFR 30-444 Severe decrease in GFR 15-29 5 Kidney failure <15 (or dialysis) [Aut omated message] The sy stem which generated this result transmitted ref erence range: >=60 mL/ min/1.73 m2. The referen ce range was not used to interpret this result as normal/abnormal . POC eGFR-JAMEEL (test 31 See_Comment L Normal eG FR >= 60 code = 34082-2) mL/min/1.73 m2 The eGFR is calculated u sing the CKD-EPI equatio n. The eGFR declines w ith age. eGFR <60 mL/min /1.73 m2 is considered a s "decreased" Thi s equation should only be used for patients 18 and older. According to e National Kid[employer] Found[employer] on's Kidney Disease Outcome Quality Initiat soila (KDOQI) classif ication and 2012 Kidney Disease Improving Globa l Outcomes (KDIGO) Clinica l Practice Guideline, the stage of CKD should be c ategorized based on estima cherrie GFR. Stage Descripti on GFR mL/min/1.73 m21 Kidney damage with nor mal or high GFR >= 902 Kidney damage with mil d decrease in GFR 60-89 3a Mild to moderate decrea se in GFR 45-593b Mode rate to severe decrease in GFR 30-444 Severe decrease in GFR 15-29 5 Kidney failure <15 (or dialysis) [Aut omated message] The sy stem which generated this result transmitted ref erence range: >=60 mL/ min/1.73 m2. The referen ce range was not used to interpret this result as normal/abnormal . POC Clean Dev (test Yes code = 6672) Lab Interpretation Abnormal (test code = 07413-2) MD BeaversUS [id number] 17:32:36 No hydronephrosis. In the partially visualized and only incidentally evaluated right liver, there is a 1.6 cm subtle hypoechoic region with relative hyperechoic periphery; this should be further assessed with restaging CT examination to assess for the possibility of metastasis.Interface, Radiology Results In - 02/29/2020 12:34 PM CDTFULL RESULT:Examination: US RENAL, 02/29/2020 11:42 AM.Clinical History: Rectal cancer.Indication: Evaluate for hydronephrosis.Comparison: CT chest abdomen pelvis 03/20/2019.Technique: Sidhu scale and color Doppler evaluation of the kidneys and limited evaluation of the pelvis was performed.Findings: The right kidney measures 10.2 cm in length and the left measures 11.5 cm. No solid renal mass, hydronephrosis or shadowing calculus is seen. Renal cysts again noted bilaterally, largest measuring 5.4 cm from the lower pole of the right kidney.Patient is status-post cystectomy.IMPRESSION:No hydronephrosis.In the partially visualized and only incidentally evaluated right liver, there is a 1.6 cm subtle hypoechoic region with relative hyperechoic periphery; this should be further assessed with restaging CT examination to assess for the possibility of metastasis.MD [id number] 17:16:22 Test Item Value Reference Range Interpretation Comments Ferritin Lvl (test code = 5608) 143 ng/mL 30-400 MD BeaversFolate [id number] 16:28:30 Test Item Value Reference Range Interpretation Comments Folate Lvl (test 10.7 ng/mL 4.8-24.2 Hemolyzed s pecimens with code = 5625) Hemolysis Index >30.0 (30 mg/dL or vi sible hemolysis) may cause interference an d give falsely high re sults. MD BeaversVitamin B12 [id number] 16:25:41 Test Item Value Reference Range Interpretation Comments Vitamin B12 Lvl (test code = 8017) 335 pg/mL 211-946 MD BeaversTransferrin with [id number] 15:03:58 Test Item Value Reference Range Interpretation Comments Transferrin (test code 274 mg/dL 200-360 = 7653) TIBC (test code = 384 See_Comment [Automate d message] 4134) The system [employer] generated this result transmitted ref erence range: 250 - 45 0 mcg/dL. The ref erence range was not u sed to interpret this result as normal/abnor mal. MD [id number] 15:03:57 Test Item Value Reference Range Interpretation Comments Iron (test code = 62 See_Comment [Automate d message] The 6018) system which ge nerated this result transmit cherrie reference range : 59 - 158 mcg/dL. The ref erence range was not used to interpret this result as normal/abnormal . MD BeaversBilirubin [id number] 14:03:41 Test Item Value Reference Range Interpretation Comments Bili Total (test 0.4 mg/dL See_Comment Indocyanine Green (ICG) code = 5096) may cause false ly elevated bilirubin resul ts. Total and direct bili gonzalez must not be measured from samples contain ing indocyanine gre en. False elevation of to hilario bilirubin can b e seen in patients with I gG concentrations above 28 g/L. [Automate d message] The system [employer] generated this result tra nsmitted reference range : <=1.2. The reference r laurence was not used to int erpret this result as greer l/abnormal. MD Beavers
--- NOTE | 2020-10-31 18:50 | ER ---
Nurse's Notes [facility] Name: Mauri Hurley Age: 70 yrs Sex: Male : 1950 Arrival Date: 10/31/2020 Time: 17:30 Bed Waiting Private MD: Nguyễn Boyer R Diagnosis: ED Course: 10/31 17:30 Patient arrived in ED. am2 17:30 Nguyễn Boyer MD is Private Physician. am2 Administered Medications: No medications were administered Outcome: 18:50 Patient left the ED. iw Signatures: Nyla Fountain RN RN Zoe Fenton am2
== END 2020-10-31 18:50 | disposition left against medical advice (07) ==
LOC: ER 17:30
DX: Z02.9 Encounter for administrative examinations, unspecified (principal)

== ENCOUNTER → 2023-09-06 | Emergency (ER) | payer OTHER ==
[~2023-09-06] MED LIST: CEPHALEXIN 250 MG CAP ONE; IBUPROFEN 400 MG TAB ONE; LIDOCAINE 2% MPF 5 ML VIAL ONE; NA CHLORIDE 0.9% 500 ML ONE; SMZ./TMP. 800/160 MG TABLET ONE; TDAP (DIPHTH,PERTUSS(ACELL),TET VAC) 0.5 ML VIAL IMVAC ONE
--- OUTSIDE RECORDS SUMMARY | 2023-09-06 20:26 | XMS REPORT | Clinical Summary ---
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 0 03/17/2018 Active omeprazole (PriLOSEC) 40 MG capsule Take 1 capsule by mouth daily. 0 12/31/2018 Active amLODIPine (NORVASC) 5 mg tablet TAKE 1 TABLET BY MOUTH ONCE DAILY IN THE MORNING 0 07/31/2020 Active hydroCHLOROthiazide (HYDRODIURIL) 12.5 mg tablet Take 1 tablet by mouth daily. 0 11/06/2020 Active irbesartan (AVAPRO) 300 mg tablet Take 1 tablet by mouth daily. 0 12/25/2020 Active celecoxib (CeleBREX) 200 mg capsule TAKE 1 CAPSULE BY MOUTH ONCE DAILY IN THE MORNING 0 01/24/2021 Active methocarbamol (ROBAXIN) 500 mg tabletIndications:A vascular necrosis of bone of hip <Left side> Take 1 tablet (500 mg) by mouth every 8 (eight) hours as needed for muscle spasms. 30 tablet 0 05/15/2021 Active HYDROcodone-acetami nophen (NORCO) 5 mg-325 mg per tabletIndications:N eoplasm related pain (acute) (chronic) Take 1 to 2 tablets by mouth every 8 (eight) hours as needed for moderate pain or severe pain. 30 tablet 0 05/15/2021 Active aspirin (Aspirin Low Dose) 81 mg EC tabletIndications:A vascular necrosis of bone of hip <Left side> Take 1 tablet (81 mg) by mouth daily. 30 tablet 0 05/16/2021 Active Additional Information Patient not taking.Reason: Other, Reported on 10/13/2021 naproxen (NAPROSYN) 500 mg tablet Take 1 tablet by mouth as needed. 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 2020 Pain in left hip 04/22/2021 Hypertension 02/29/2020 Acute kidney failure 02/29/2020 Bradycardia 02/29/2020 Chronic anemia 08/04/2019 Hernia of abdominal wall 08/04/2019 Overview: 04/25 [facility] regulatory import Personal history of colonic polyp 10/04/2017 Overview: Added automatically from request for surgery [id number] Acquired deformity of pelvis 12/30/2016 Avascular necrosis of bone of hip 12/09/2016 Peripheral neuropathic pain 10/20/2016 Hyperglycemia 10/16/2016 Attention to colostomy 08/29/2016 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 Rectal cancer 10/28/2012 Encounters Date Type Department Care Team Description 11/23/2022 9:00 AM CDT Telemedicine [facility] [address] [facility], 7th [place] [address] Wilfredo Sage MD Personal history of rectal cancer (Primary Dx); Rectal cancer 11/19/2022 12:55 PM CDT Ancillary Procedure CT Imaging [address] [facility], 7th [place] [address] Sajan Copeland PA Rectal cancer 11/19/2022 12:15 PM CDT - 11/19/2022 11:59 PM CDT Hospital Encounter [facility] [address] [place] [address] Sajan Copeland PA Rectal cancer Discharge Disposition: Home 11/19/2022 Travel after 09/06/2022 Immunizations Name Administration Dates Next Due Influenza (IM) Preservative Free 08/11/2016 Surgical History Surgery Date Site/Laterality Comments ABDOMINAL PERINEAL BOWEL RESECTION W/ ILEOANAL POUCH 07/26/2012 - 07/25/2013 GA EXPLORATORY LAPAROTOMY CELIOTOMY W/WO BIOPSY SPX 12/25/2016 Abdomen/Midline Procedure: (IORT) EXPLORATORY CELIOTOMY (LAPAROTOMY); Surgeon: Maco Vanessa MD; Location: MAIN OR; Service: SURG ONC - COLORECTAL Medical devices from this surgery are in the Medical Devices section. GA ENTEROLSS FRING INTSTINAL ADHESION SPX 12/25/2016 Abdomen/Midline Procedure: FREEING OF INTESTINAL ADHESION; Surgeon: Maco Vanessa MD; Location: MAIN OR; Service: SURG ONC - COLORECTAL Medical devices from this surgery are in the Medical Devices section. GA MUSC MYOCUTANEOUS/FASCIOCUTAN EOUS FLAP TRUNK 12/25/2016 Midline Procedure: MUSCLE/MYOCUTANEOUS/FASCIOC UTANEOUS FLAP OF TRUNK; Surgeon: Maninder Edouard MD; Location: MAIN OR; Service: PLS - PLASTIC SURGERY Medical devices from this surgery are in the Medical Devices section. GA CSTC COMPL W/URTROILEAL CONDUIT/BLDR W/INT ANAST 12/25/2016 Abdomen/Midline Procedure: RADICAL CYSTECTOMY, WITH ILEALO-CONDUIT URINARY DIVERSION; Surgeon: Kj Kendrick MD; Location: MAIN OR; Service: UROLOGY Medical devices from this surgery are in the Medical Devices section. GA INTRAOP RADIAJ TX DELIVER ELECTRONS SNGL TX SESS 12/25/2016 N/A Procedure: INTRAOPERATIVE RADIATION TREATMENT; Surgeon: Richie Leo MD; Location: MAIN OR; Service: RADIATION ONCOLOGY Medical devices from this surgery are in the Medical Devices section. GA CYSTO W/INSERT URETERAL STENT 12/25/2016 Genitalia/Bilateral Procedure: CYSTOURETHROSCOPY WITH INSERTION OF INDWELLING URETERAL STENT; Surgeon: Jacqui Parsons MD; Location: MAIN OR; Service: UROLOGY Medical devices from this surgery are in the Medical Devices section. GA CSTC COMPL W/CONDUIT/SIGMOID BLDR PEL LMPHADEC 12/25/2016 Abdomen/N/A Procedure: CYSTECTOMY, COMPLETE, WITH URETEROILEAL CONDUIT OR SIGMOID BLADDER, INCLUDING INTESTINE ANASTOMOSIS; WITH BILATERAL PELVIC LYMPHADENECTOMY, INCLUDING EXTERNAL ILIAC, HYPOGASTRIC, AND OBTURATOR NODES; Surgeon: Maco Vanessa MD; Location: MAIN OR; Service: SURG ONC - COLORECTAL Medical devices from this surgery are in the Medical Devices section. GA PROSTATECTOMY RETROPUBIC W/WO NERVE SPARING 12/25/2016 Abdomen/N/A Procedure: RADICAL PROSTATECTOMY ; Surgeon: Kj Kendrick MD; Location: MAIN OR; Service: UROLOGY Medical devices from this surgery are in the Medical Devices section. COLONOSCOPY W/ POLYPECTOMY 10/04/2017 2 TA, 1 inflammatory polyp removed; f/up 3 years GA COLONOSCOPY STOMA DX INCLUDING COLLJ SPEC SPX 10/04/2017 N/A Procedure: DIAGNOSTIC COLONOSCOPY THROUGH STOMA; Surgeon: Skip Correa MD; Location: MAIN ENDOSCOPY; Service: GASTROENTEROLOGY GA COLONOSCOPY W/BIOPSY SINGLE/MULTIPLE 10/25/2020 N/A Procedure: FLEXIBLE COLONOSCOPY PROXIMAL TO SPLENIC FLEXURE WITH BIOPSY; Surgeon: Skip Correa MD; Location: MAIN ENDOSCOPY; Service: GASTROENTEROLOGY; f/up 3 years GA ARTHRP ACETBLR/PROX FEM PROSTC AGRFT/ALGRFT 05/14/2021 Hip/Left Procedure: TOTAL ARTHROPLASTY OF HIP WITH ACETABULAR AND PROXIMAL FEMORAL PROSTHETIC REPLACEMENT (TOTAL HIP); Surgeon: Justo Ashton MD; Location: MAIN OR; Service: ORTHOPEDIC ONCOLOGY Medical devices from this surgery are in the Medical Devices section. Medical History Medical History Date Comments Rectal cancer 10/13/2012 INVASIVE MODERAT KAREN DIFFERENTIATED ADENOCARCINOMA Hypertension 2000 Hyperglycemia 09/2016 Tubular adenoma of colon 10/04/2017 s/p clotilde ypectomy Inflammatory polyp of colon without complication 10/04/2017 s/p polypectomy Family History Medical History Relation Name Comments Coronary heart disease (CHD) Neg Hx Diabetes Neg Hx Hypertension Neg Hx Stroke Neg Hx Venous thrombosis Neg Hx Social History Tobacco Use Types Packs/Day Years Used Date Smoking Tobacco: Former Cigarettes 0.2 23 1 994 - 05/12/2019 Smokeless Tobacco: Never Tobacco Cessation:Ready to Q uit: Yes; Counseling Given: Yes Alcohol Use Standard Drinks/Week Comments Yes 3 (1 standard drink = 0.6 oz pure alcohol) 3-4 cans (16oz) of beer per day Sex and Gender Information Value Date Recorded Sex Assigned at Not on file Gender Identity Not on file Sexual Orientation Not on file Job Start Date Occupation Industry Not on file Not on file Not on file Obstetrics History Plan of Treatment Upcoming Encounters Date Type Department Care Team Description 11/22/2023 7:45 AM CDT Appointment [facility] [address] [place] [address], [place] [address] Sajan Copeland PA [address] [place] [id number] 11/22/2023 8:40 AM CDT Follow-Up [facility] [address] [place] [address], 7th [place] [address] Wilfredo Sage MD [address] [place] [address] 12/02/2023 9:20 AM CDT Hospital Encounter [facility] [address] [place] [address], 5th [place] [address] Tri Dominguez MD [address] [place] [address] 12/02/2023 9:20 AM CDT - 12/02/2023 10:20 AM CDT Surgery [facility]oscopy [facility] [address] [facility], 5th [place] [address] Tri Dominguez MD [address] [place] [address] DIAGNOSTIC FLEXIBLE COLONOSCOPY PROXIMAL TO SPLENIC FLEXURE Scheduled Procedures Name Priority Associated Diagnoses Date/Ti me DIAGNOSTIC FLEXIBLE COLONOSCOPY PROXIMAL TO SPLENIC FLEXURE Personal history of colonic polyp Rectal cancer 12/02/2023 9:20 AM CDT Health Maintenance Due Date Last Done Comments COVID-19 Vaccination (#1) 05/02/1951 Medical Devices Implanted 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 Device Identifier Shelf Expiration Date Model / Serial / Lot Seprafilm - Sna Implanted:Qty : 2 on 12/25/2016 by Maninder Edouard MD at [facility] Implant N/A: Abdomen [employer] 01/22/2019 [id number] / NA / [id number] Microport Prime Biofoam Quad Shell 54mm Implanted:Qty : 1 on 05/14/2021 by Justo Ashton MD at [facility] Implant Left: Hip [employer] [id number] / / [id number] Description:[employer] Microport Prime E-Class Xlpe Liner 36mm Implanted:Qty : 1 on 05/14/2021 by Justo Ashton MD at [facility] Implant Left: Hip [employer] [id number] / / [id number] Description:[employer] Microport Biolox Delta Femoral Head 36mm Implanted:Qty : 1 on 05/14/2021 by Justo Ashton MD at [facility] Implant Left: Hip [employer] [id number] / / [id number] Procedures Procedure Name Priority Date/Time Associated Diagnosis Comments CT CHEST ABDOMEN PELVIS W CONTRAST Routine 11/19/2022 4:06 PM CDT Rectal cancer FRACTIONATED BILIRUBIN Routine 12:54 PM CDT Rectal cancer TOTAL PROTEIN Routine 11/19/2022 12:54 PM CDT Rectal cancer ASPARTATE AMINOTRANSFERASE Routine 11/19/2022 12:54 PM CDT Rectal cancer ALANINE AMINOTRANSFERASE Routine 023 12:54 PM CDT Rectal cancer ALKALINE PHOSPHATASE Routine 11/19/2022 12:54 PM CDT Rectal cancer ALBUMIN LEVEL Routine 11/19/2022 12:54 PM CDT Rectal cancer CALCIUM LEVEL Routine 11/19/2022 12:54 PM CDT Rectal cancer .GLOMERULAR FILTRATION RATE Routine 11/19/2022 12:54 PM CDT Rectal cancer SERUM CREATININE Routine 11/19/2022 12:5 4 PM CDT Rectal cancer ELECTROLYTE PANEL Routine 11/19/2022 12: 54 PM CDT Rectal cancer BLOOD UREA NITROGEN Routine 11/19/2022 1 2:54 PM CDT Rectal cancer GLUCOSE LEVEL Routine 11/19/2022 12:54 PM CDT Rectal cancer DIFFERENTIAL Routine 11/19/2022 12:54 PM CDT Rectal cancer .CBC Routine 11/19/2022 12:54 PM CDT Rectal cancer CARCINOEMBRYONIC ANTIGEN Routine 023 12:54 PM CDT Rectal cancer COMPREHENSIVE METABOLIC PANEL Routine 11/19/2022 12:54 PM CDT Rectal cancer COMPLETE BLOOD COUNT W/ DIFFERENTIAL Routine 11/19/2022 12:54 PM CDT Rectal cancer after 09/06/2022 Results * CT Chest Abdomen Pelvis with Contrast (11/19/2022 4:06 PM CDT) Anatomical Region Laterality Modality Abdomen, Pelvis, Chest Computed Tomography 11/19/2022 4:22 PM CDT Impressions 11/19/2022 4:40 PM CDT Stable postsurgical changes of pelvic exenteration, left lower quadrant colostomy and right lower quadrant ileal conduit urinary diversion. No local tumor recurrence. No evidence of metastatic disease within the chest, abdomen, or pelvis. Stable additional incidental findings as above-described. Narrative 11/19/2022 4:40 PM CDT FULL RESULT: Examination: CT CHEST ABDOMEN PELVIS W CONTRAST, 11/19/2022 4:06 PM. Clinical History: Rectal cancer. Indication: Cancer surveillance, hx of recurrent metastatic colorectal cancer. Comparison: 10/12/2021. Technique: CT of the chest abdomen pelvis with IV and oral contrast. Findings: Chest: No suspicious pulmonary nodule, consolidation or effusion. No enlarging lymph nodes identified. Abdomen and Pelvis: No suspicious solid organ lesion. Stable flash filling hemangioma in the left lobe of the liver in image 96 of series 6. Stable diffuse thickening of the left adrenal gland in image 169 series 6. Again seen are bilateral cortical and parapelvic renal cysts. The largest cyst in the right kidney midpole has decreased in size, currently measuring 5.8 cm compared to 7.5 cm on the prior study series 6 image 332. Remaining cysts are stable. No enlarging lymph nodes identified. Stable nonspecific mesenteric lymph node in image 394 of series 6 measuring 0.8 cm, may be reactive. The gallbladder is unremarkable. No biliary dilatation, hydronephrosis, ascites or bowel obstruction. Stable postsurgical changes of pelvic exenteration, left lower quadrant colostomy and right lower quadrant ileal conduit urinary diversion. No local tumor recurrence. Musculoskeletal: No suspicious osseous lesion. Again seen is a partially visualized left hip arthroplasty generates an artifact obscuring adjacent anatomy limiting evaluation of the pelvis. There is a stable avascular necrosis of the right femoral head without articular surface collapse or subcortical fracture. Procedure Note Sandeep Maria MD - 11/19/2022 FULL RESULT: Examination: CT CHEST ABDOMEN PELVIS W CONTRAST, 11/19/2022 4:06 PM. Clinical History: Rectal cancer. Indication: Cancer surveillance, hx of recurrent metastatic colorectalcancer. Comparison: 10/12/2021. Technique: CT of the chest abdomen pelvis with IV and oral contrast. Findings: Chest: No suspicious pulmonary nodule, consolidation or effusion. No enlarging lymph nodes identified. Abdomen and Pelvis: No suspicious solid organ lesion. Stable flash filling hemangioma in the left lobe of the liver in image 96of series 6. Stable diffuse thickening of the left adrenal gland in image 169 series6. Again seen are bilateral cortical and parapelvic renal cysts. The largestcyst in the right kidney midpole has decreased in size, currentlymeasuring 5.8 cm compared to 7.5 cm on the prior study series 6 image 332.Remaining cysts are stable. No enlarging lymph nodes identified. Stable nonspecific mesenteric lymphnode in image 394 of series 6 measuring 0.8 cm, may be reactive. The gallbladder is unremarkable. No biliary dilatation, hydronephrosis, ascites or bowel obstruction. Stable postsurgical changes of pelvic exenteration, left lower quadrantcolostomy and right lower quadrant ileal conduit urinary diversion. Nolocal tumor recurrence. Musculoskeletal: No suspicious osseous lesion. Again seen is a partially visualized left hip arthroplasty generates anartifact obscuring adjacent anatomy limiting evaluation of the pelvis. There is a stable avascular necrosis of the right femoral head withoutarticular surface collapse or subcortical fracture. IMPRESSION: Stable postsurgical changes of pelvic exenteration, left lower quadrantcolostomy and right lower quadrant ileal conduit urinary diversion. Nolocal tumor recurrence. No evidence of metastatic disease within the chest, abdomen, or pelvis. Stable additional incidental findings as above-described. Sajan SO IMG CT ORDERABLES * .Serum Creatinine (11/19/2022 12:54 PM CDT) Creatinine 0.91 0.67 - 1.17 mg/dL [facility] Comment:Testing Performed at [facility] Sales Process Manager [facility], [address] [place] [address], [address], [place] [address] Blood 11/19/2022 12:5 4 PM CDT 11/19/2022 1:24 PM CDT Sajan SO LAB BLOOD ORDERABLES [address] [place] [address] * (ABNORMAL) .CBC (11/19/2022 12:54 PM CDT) WBC 6.8 4.0 - 11.0 K/uL [facility] RBC 4.06(L) 4.50 - 6.00 M/uL [facility] Hgb 12.6(L) 14.0 - 18.0 gm/dL [facility] Comment:As part of CBC or as an individual orderable testing performed at [facility], [address] [facility], [address], [place] [address] Hct 38.2(L) 40.0 - 54.0 % [facility] Comment:As part of CBC or as an individual orderable testing performed at [facility], [address] [place] [address], [address], [place] [address] MCV 94 82 - 98 fL [facility] MCH 31.0 27.0 - 31.0 pg [facility] MCHC 33.0 31.0 - 36.0 gm/dL [facility] RDW-SD 48.8(H) 35.1 - 46.3 fL [facility] RDW-CV 14.1 12.0 - 15.5 % [facility] Platelet count 291 140 - 440 K/uL [facility] Comment:As part of CBC or as an individual orderable testing performed at [facility], [address] [facility], [address], [place] [address] MPV 10.1 4.0 - 10.4 fL [facility] INRBC 0.0 <=0.0 % [facility] Comment: The INRBC (instrument NRBC) value reflects the enumeration of nucleated red blood cells contained in a 200uL sample of whole blood analyzed by the instrument. This value may differ from the NRBC value reported in a manual differential, which is based on a 100 cell differential. As part of CBC testing performed at [address], [address], [place] [address] Blood 11/19/2022 12:5 4 PM CDT 11/19/2022 1:17 PM CDT Sajan SO LAB BLOOD ORDERABLES [address] [place] [address] * Glomerular Filtration Rate (11/19/2022 12:54 PM CDT) eGFR 90 >=60 mL/min/1.7 3 sq. m [facility] Comment: The eGFRcr is calculated with the 2020 CKD-EPI creatinine equation using creatinine, patient's age, and sex for adults 18 years of age and older. Other factors, especially muscle mass, may affect accuracy and need to be considered. According to the Kidney Disease: Improving Global Outcomes (KDIGO) CKD Work Group 2012 Clinical Practice Guideline, chronic kidney disease (CKD) is defined as the abnormalities of kidney structure or function, present for more than 3 months, with implications for health. CKD should be classified by cause, GFR category, and albuminuria category. KDIGO guidelines provide the following GFR categories Stage Description GFR mL/min/1.73 m2 G1* Normal or high >= 90 G2* Mildly decreased 60-89 G3a Mildly to moderately decreased 45-59 G3b Moderately to severely decreased 30-44 G4 Severely decreased 15-29 G5 Kidney failure <15 *In the absence of evidence of kidney damage, neither G1 nor G2 fulfill criteria for CKD. Testing Performed at [facility], [address] [place] [address], [address], [place] [address] Blood 11/19/2022 12:5 4 PM CDT 11/19/2022 1:24 PM CDT Sajan SO LAB BLOOD ORDERABLES [address] [place] [address] * Fractionated Bilirubin (11/19/2022 12:54 PM CDT) Bili Total 0.6 <=1.2 mg/dL [facility] Comment: Indocyanine Green (ICG) may cause falsely elevated bilirubin results. Total and direct bilirubin must not be measured from samples containing indocyanine green. False elevation of total bilirubin can be seen in patients with IgG concentrations above 28 g/L. Testing Performed at [facility], [facility] [facility], [address], [place] [address] Bili Direct <0.2 <=0.3 mg/dL [facility] Comment: Indocyanine Green (ICG) may cause falsely elevated bilirubin results. Total and direct bilirubin must not be measured from samples containing indocyanine green. Testing Performed at [facility], [address] [place] [address], [address], [place] [address] Bili Indirect See Note 0.0 - 0.9 mg/dL [facility] Comment: Unable to calculate Indirect Bilirubin result due to some parameters are outside reportable range Testing Performed at [facility], [address] [place] [address], [address], [place] [address] Blood 11/19/2022 12:5 4 PM CDT 11/19/2022 1:24 PM CDT Sajan SO LAB BLOOD ORDERABLES [address] [place] [address] * (ABNORMAL) Differential (11/19/2022 12:54 PM CDT) Neutrophil % 67.1(H) 42.0 - 66.0 % [facility] Comment:As part of Different ial performed at [facility], [address] [place] [address], [address], [place] [address] Lymphocyte % 18.2(L) 24.0 - 44.0 % [facility] Monocyte % 8.9(H) 2.0 - 7.0 % [facility] Eosinophil % 4.7(H) 1.0 - 4.0 % [facility] Basophil % 0.4 0.0 - 1.0 % [facility] IGRE % 0.7(H) 0.0 - 0.4 % [facility] Comment: IGRE % count includes Metamyelocytes, Myelocytes, and Promyelocytes. As part of Differential performed at [facility], [address] [place] [address], [address], [place] [address] Neutrophil Abs 4.53 1.70 - 7.30 K/uL [facility] Lymphocyte Abs 1.23 1.00 - 4.80 K/uL [facility] Monocyte Abs 0.60 0.08 - 0.70 K/uL [facility] Eosinophil Abs 0.32 0.04 - 0.40 K/uL [facility] Basophil Abs 0.03 0.00 - 0.10 K/uL [facility] IG Abs 0.05(H) 0.00 - 0.04 K/uL [facility] Blood 11/19/2022 12:5 4 PM CDT 11/19/2022 1:17 PM CDT Sajan SO LAB BLOOD ORDERABLES [facility] [address] [place] [address]. [address] [place] [address] * BUN (11/19/2022 12:54 PM CDT) BUN 15 6 - 23 mg/dL [facility] Comment:Testing Performed at [facility] Sales Process Manager [facility], [address] [place] [address], [address], [place] [address] Blood 11/19/2022 12:5 4 PM CDT 11/19/2022 1:24 PM CDT Sajan SO LAB BLOOD ORDERABLES Performing Organization Address [facility]/ZIP Co de Phone Number [facility] [address] [place] [address]. [address] [place] [address] * ALT (11/19/2022 12:54 PM CDT) ALT 19 <=41 U/L [facility] Comment:Testing Performed at [facility] Sales Process Manager [facility], [address] [place] [address], [address], [place] [address] Blood 11/19/2022 12:5 4 PM CDT 11/19/2022 1:24 PM CDT Sajan SO LAB BLOOD ORDERABLES [facility] [address] [place] [address]. [address] [place] [address] * Aspartate Aminotransferase (11/19/2022 12:54 PM CDT) AST 23 <=40 U/L [facility] Comment:Testing Performed at B Lab Sales Process Manager [facility], [address] [facility], [address], [place] [address] Blood 11/19/2022 12:5 4 PM CDT 11/19/2022 1:24 PM CDT Sajan SO LAB BLOOD ORDERABLES Performing Organization Address City/[facility]/ZIP Co de Phone Number [facility] [address] [place] [address]. [address] [place] [address] * Total Protein (11/19/2022 12:54 PM CDT) Total Protein 7.8 6.4 - 8.3 g/dL [facility] Comment:Testing Performed at [facility] Sales Process Manager [facility], [address] [place] [address], [address], [place] [address] Blood 11/19/2022 12:5 4 PM CDT 11/19/2022 1:24 PM CDT Sajan SO LAB BLOOD ORDERABLES Performing Organization Address [facility]/ZIP Co de Phone Number [address] [place] [address] * Alkaline Phosphatase (11/19/2022 12:54 PM CDT) Alk Phos 93 40 - 129 U/L [facility] Comment:Testing Performed at [facility] Sales Process Manager [facility], [address] [place] [address], [address], [place] [place] [address] Blood 11/19/2022 12:5 4 PM CDT 11/19/2022 1:24 PM CDT Sajan SO LAB BLOOD ORDERABLES Performing Organization Address City/[facility]/ZIP Co de Phone Number [facility] [address] [place] [address]. [address] [place] [address] * (ABNORMAL) Glucose Level (11/19/2022 12:54 PM CDT) Glucose Level 105(H) 70 - 99 mg/dL [facility] Comment: Effective 02/19/16, the glucose reference intervals have been updated based on [place] Diabetes [employer] guidelines (Standards of Medical Care in Diabetes 2016. Diabetes Care 2016; 39: S13-S22). Fasting blood glucose: Normal: 70-99 mg/dL Impaired fasting glucose (increased risk for diabetes or pre-diabetes): 100- 125 mg/dL Diabetes mellitus: >/=126 mg/dL Random blood glucose: Normal: 70-199 mg/dL Note: Random glucose >100 mg/dL is associated with increased risk for diabetes Testing Performed at [facility], [address] [place] [address], [address], [place] [address] Blood 11/19/2022 12:5 4 PM CDT 11/19/2022 1:24 PM CDT Sajan SO LAB BLOOD ORDERABLES Performing Organization Address [facility]/ZIP Co de Phone Number [address] [place] [address] * CEA (11/19/2022 12:54 PM CDT) CEA 3.1 <=3.8 ng/mL [facility] Comment: Reference Ranges: Smoker: 0.0 - 5.5 Non-Smoker: 0.0 - 3.8 This test is measured by electrochemiluminescence immunoassay on [employer] immunoassay analyzers. Results obtained in different methods are not interchangeable. Testing Performed at [facility], [address] [place] [address], [address], [place] [address] Blood 11/19/2022 12:5 4 PM CDT 11/19/2022 1:24 PM CDT Sajan SO LAB BLOOD ORDERABLES Performing Organization Address City/[facility]/ZIP Co de Phone Number [address] [place] [address] * Calcium Level (11/19/2022 12:54 PM CDT) Calcium Lvl 9.7 8.4 - 10.2 mg/dL [facility] Comment:Testing Performed at [facility] Process [facility], [address] [place] [address], [address], [place] [address] Blood 11/19/2022 12:5 4 PM CDT 11/19/2022 1:24 PM CDT Sajan SO LAB BLOOD ORDERABLES [facility] [address] [facility] [place] [address] * Albumin Level (11/19/2022 12:54 PM CDT) Albumin Lvl 4.5 3.5 - 5.2 gm/dL [facility] Comment:Testing Performed at [facility], [address], [address], [place] [address] Blood 11/19/2022 12:5 4 PM CDT 11/19/2022 1:24 PM CDT Sajan SO LAB BLOOD ORDERABLES Performing Organization Address [facility] Co de Phone Number [facility] [address] [facility]. [address] [place] [address] * Electrolyte Panel (11/19/2022 12:54 PM CDT) Sodium Lvl 139 136 - 145 mEq/L [facility] Comment:Testing Performed at [facility], [address], [address], [place] [address] Potassium Lvl 4.4 3.5 - 5.1 mEq/L [facility] Comment:Testing Performed at [facility] Sales Process [facility], [address], [address], [place] [address] Chloride 105 98 - 107 mEq/L [facility] Comment:Testing Performed at [facility] Sales Process [facility], [address], [address], [place] [address] CO2 23 22 - 29 mEq/L [facility] Comment:Testing Performed at [facility] Sales Process [facility], [address], [address], [place] [address] Anion Gap 11 4 - 14 mEq/L [facility] Comment:Testing Performed at [facility] Sales Process [facility], [address], [address], [place] [address] Blood 11/19/2022 12:5 4 PM CDT 11/19/2022 1:24 PM CDT Sajan SO LAB BLOOD ORDERABLES [facility] 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 Specialty Start Date End Date Chang Stein MD [address] [place], [place] [id number] PCP - External Follow Up A Medical Oncology 07/21/16 Karely Pantoja MD [address] [place], [place] [address] PCP - External Referring Hematology 08/11/16 Wilfredo Sage MD [address] [place] [address] PCP - General Gastrointestinal Medical Oncology 02/29/20 Adrian Cifuentes MD [address] [place] [address] Consulting Physician Internal Medicine 12/04/16 Joni Mina MD [address] [place] [address] Consulting Physician Neurosurgery 10/22/16 Mercy Wang MD [address] [place] [address] Consulting Physician Radiation Oncology 12/03/16 Ghassan Todd MD [address] [place] [address] Consulting Physician Internal Medicine 05/12/21 Ruchi Kimble MD [address] [place] [address] Consulting Physician Endocrinology 11/30/16 Eleonora Pepper MD [address] [place] [address] Consulting Physician Surgical Oncology 09/08/19 Kj Kendrick MD [address] [place] [address] Consulting Physician Urology 11/30/16 Maco Vanessa MD [address] [place] [address] Consulting Physician Colorectal Surgery 08/25/16
--- NOTE | 2023-09-06 22:38 | RAD REPORT ---
EXAM DESCRIPTION: RAD - Tib Fib Right - 09/06/2023 10:24 pm CLINICAL HISTORY: Right leg pain FINDINGS: No fracture is seen Anterior soft tissue laceration distal aspect of the lower leg. Multiples radiopaque foreign bodies a re present within the adjacent soft tissue Vascular calcifications
--- NOTE | 2023-09-07 00:48 | EDPHYS ---
Physician Documentation [facility] Name: Mauri Hurley Age: 72 yrs Sex: Male : 1950 Arrival Date: 09/06/2023 Time: 20:23 Bed 20 Private MD: ED Physician Valente Pereira HPI: 09/06 22:00 This 72 yrs old Male presents to ER via Ambulatory with complaints of Leg cp Injury. 22:00 The patient presents with a laceration, dirty, irregular, ragged. The complaints affect cp the right german. Context: resulted from direct blow while using metal trim erector, the patient can fully bear weight, the patient is able to ambulate, with mild difficulty. Onset: The symptoms/episode began/occurred just prior to arrival. Associated signs and symptoms: The patient has no apparent associated signs or symptoms. Treatment prior to arrival includes: band aid. Patient reports he was using a metal trim erector when he lost control and it struck right german. Historical: - Allergies: 20:31 No Known Allergies; tl4 - PMHx: 20:31 colon cancer; Hypertension; tl4 - Immunization history:: Adult Immunizations unknown. - Social history:: Smoking status: Patient reports the use of cigarette tobacco products, smokes one-half pack cigarettes per day. ROS: 22:05 MS/extremity: Positive for injury or acute deformity, laceration, of the right german, cp Negative for paresthesias, 22:05 Constitutional: Negative for fever, cp 22:05 Respiratory: Negative for cough, shortness of breath, wheezing, 22:05 Back: Negative for pain at rest, pain with movement, 22:05 Neuro: Negative for numbness, 22:05 All other systems are negative, Exam: 22:10 Constitutional: The patient appears in no acute distress, alert, awake, non-toxic, well cp developed, well nourished, 22:10 Head/Face: Normocephalic, atraumatic. cp 22:10 Eyes: Periorbital structures: appear normal, Conjunctiva: normal, no exudate, no injection, Lids and lashes: appear normal, bilaterally, 22:10 ENT: External ear(s): are unremarkable, Nose: is normal, Mouth: Lips: moist, Oral mucosa: pink and intact, moist, Posterior pharynx: is normal, airway is patent, no erythema, no exudate, 22:10 Neck: ROM/movement: is normal, is supple, without pain, no range of motions limitations, 22:10 Chest/axilla: Inspection: normal, 22:10 Cardiovascular: Rate: normal, 22:10 Respiratory: the patient does not display signs of respiratory distress, Respirations: normal, no use of accessory muscles, no retractions, labored breathing, is not present, Breath sounds: are clear throughout, no decreased breath sounds, 22:10 Abdomen/GI: Inspection: abdomen appears normal, Palpation: abdomen is soft and non-tender, in all quadrants, 22:10 Back: pain, is absent, ROM is normal, 22:10 Skin: injury, laceration(s), the wound is approximately 6 cm(s), of the right german, that can be described as contaminated, foreign body containing, irregular, jagged, with mild bleeding, gaping with fascia exposed, 22:10 Neuro: Orientation: to person, place \T\ time. Mentation: is normal, Motor: moves all fours, strength is normal, Vital Signs: 20:28 BP 133 / 74; Pulse 76; Resp 16; Temp 98.2(O); Pulse Ox 98% ; Weight 77.11 kg; Height 5 tl4 ft. 5 in. ; Pain 10/02; 09/07 00:00 BP 129 / 71; Pulse 65; Resp 17 S; Pulse Ox 99% on R/A; ha1 01:00 BP 134 / 65; Pulse 60; Resp 17 S; Temp 98.2; Pulse Ox 99% on R/A; ha1 09/06 20:28 Body Mass Index 28.29 (77.11 kg, 165.1 cm) tl4 02 20:28 Pain Scale: Adult tl4 Laceration: 00:45 Wound Repair of 6cm ( 2.4in ) subcutaneous laceration to right german. Irregularly cp shaped.. Minimal bleeding noted.. Moderate contamination.. dermal layer partially missing, fascia exposed, multiple small dark colored foreign body material noted. Distal neuro/vascular/tendon intact. Anesthesia: Wound infiltrated with 8 mls of 2% lidocaine. Wound prep: Moderate cleansing by me, Wound irrigation by me, Particulate matter removal of metal by me, Copious irrigation. Skin closed with 6 4-0 Prolene using partial loose closure of wound. Dressed with 4x4's. Patient tolerated well. MDM: 09/06 20:29 Patient medically screened. cp 09/07 00:48 Data reviewed: vital signs, nurses notes, radiologic studies, plain films, I have cp discussed the patient's presentation/case with the attending Emergency Department Physician; and as a result, I will discharge patient. 00:48 Differential diagnosis: open fracture, closed fracture, laceration, skin avulsion. I cp considered the following discharge prescriptions or medication management in the emergency department Medications were administered in the Emergency Department. See MAR. Care significantly affected by the following chronic conditions: Hypertension. Special discussion: I discussed in detail with the patient the higher chance of wound infection based on his presenting history. 09/06 21:37 Order name: XRAY Tib Fib RIGHT; Complete Time: 00:15 cp 09/07 00:15 Interpretation: Report reviewed. cp 09/06 21:37 Order name: Dressing - Wound; Complete Time: 00:13 cp 09/06 21:37 Order name: Gloves, Sterile; Complete Time: 00:13 cp 09/06 21:37 Order name: Setup Suture Tray; Complete Time: 00:13 cp 09/06 23:59 Order name: Wound Care: please clean and irrigate wound; Complete Time: 00:13 cp Administered Medications: 09/06 22:39 Drug: Tetanus-Diphtheria Toxoid IM Adult 0.5 ml IM once; Provide Vaccine Information tl4 Statement (VIS). 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: [employer]; Exp: WedDec 15 2024; Lot #: [id number]; Series: 1 of 1; Patient Consent: Obtained; Date/Time: ; Source Name: Mauri Hurley; Source Relationship: Self; Address Information: [facility] [address], [place] [address]; ; Education: Provided; VIS Presented Date: ; VIS Publication: Tetanus/Diphtheria (Td) Vaccine VIS 11/03/2016 (historic)} Route: IM; Site: left deltoid; 23:20 Follow up: Response: No adverse reaction ha1 23:51 Follow up: Response: No adverse reaction tl4 22:40 Drug: Ibuprofen PO 800 mg PO once Route: PO; tl4 23:50 Follow up: Response: Pain is decreased tl4 23:50 Drug: Sodium Chloride 0.9% IVPB 500 ml IVPB once {Note: USED TO IRRIGATE WOUND.} Route: ha1 IVPB; Site: Other; 09/07 00:00 Follow up: Response: No adverse reaction; IV Status: Completed infusion ha1 00:13 Drug: Lidocaine Infiltration (2 %) 10 ml 5 ml Infiltration once; to bedside {Note: ha1 ADMINISTERED BY PAGE .} Volume: 5 ml; Route: Infiltration; 00:35 Follow up: Response: No adverse reaction ha1 00:24 Drug: Lidocaine Infiltration (2 %) 5 mg Infiltration once {Note: ADMINISTERED BY PAGE ha1 .} Route: Infiltration; 01:31 Follow up: Response: No adverse reaction ha1 01:15 Drug: Trimethoprim-Sulfamethoxazole PO (160 mg-800 mg (DS) 1 tablet PO once Route: PO; ha1 01:31 Follow up: Response: No adverse reaction ha1 01:15 Drug: Cephalexin PO 500 mg PO once Route: PO; ha1 01:30 Follow up: Response: No adverse reaction ha1 Disposition: 22:19 Co-signature as Attending Physician, Valente Pereira MD I agree with the assessment sp4 and plan of care. I reviewed the patient's care provided by the Advanced Practice Provider and agree with the diagnosis and treatment plan. Disposition Summary: 09/07/23 00:48 Discharge Ordered Notes: Location: Home cp Problem: new cp Symptoms: have improved cp Condition: Stable cp Diagnosis - Leg Laceration/ Open wound of lower leg - right with foreign body cp Followup: cp - With: Barry Hurley MD - When: 1 - 2 days - Reason: Wound Recheck Discharge Instructions: - Discharge Summary Sheet cp - Laceration Care, Adult cp - Sutured Wound Care cp Forms: - Medication Reconciliation Form cp - Thank You Letter cp - Antibiotic Education cp - Prescription Opioid Use cp - Patient Portal Instructions cp - Leadership Thank You Letter cp Prescriptions: - mupirocin 2 % Topical ointment - apply 1 application TOPICAL route 3 times per day; 30 gram tube; Refills: 0, cp Product Selection Permitted - Cephalexin 500 mg Oral Capsule - take 1 capsule ORAL route every 6 hours for 10 days; 40 capsule; Refills: 0, cp Product Selection Permitted - Ibuprofen 800 mg Oral Tablet - take 1 tablet ORAL route every 8 hours As needed take with food; 30 tablet; cp Refills: 0, Product Selection Permitted - Bactrim DS 800-160 mg Oral Tablet - take 1 tablet ORAL route every 12 hours for 10 days; 20 tablet; Refills: 0, cp Product Selection Permitted Signatures: Dispatcher [employer] EDMS Benton Rodriguez PA PA cp Ayala, Heidy, RN RN ha1 Valente Pereira MD MD sp4 Edson Cordero RN RN tl4 Corrections: (The following items were deleted from the chart) 22:25 0212 00:30 Wound Repair of 6cm ( 2.4in ) subcutaneous laceration to right german. cp Irregularly shaped.. Minimal bleeding noted.. Moderate contamination.. dermal layer partially missing, fascia exposed, multiple small dark colored foreign body material noted. Distal neuro/vascular/tendon intact. Anesthesia: Wound infiltrated with 8 mls of 2% lidocaine. Wound prep: Moderate cleansing by me, Wound irrigation by me, Particulate matter removal of metal by me, Copious irrigation. Skin closed with 6 4-0 Prolene using partial loose closure of wound. Dressed with 4x4's. Patient tolerated well. cp
--- NOTE | 2023-09-07 00:48 | ER ---
Nurse's Notes [facility] Name: Mauri Hurley Age: 72 yrs Sex: Male : 1950 Arrival Date: 09/06/2023 Time: 20:23 Bed 20 Private MD: Diagnosis: Leg Laceration/ Open wound of lower leg-right with foreign body Presentation: 09/06 20:28 Chief complaint: Patient states: Pt states he was hit in the right lower leg with a tl4 grinder machine setter at approx 1300 today. Bleeding controlled. Unknown last tetanus. Coronavirus screen: At this time, the client does not indicate any symptoms associated with coronavirus-19. Ebola Screen: No symptoms or risks identified at this time. Initial Sepsis Screen: Does the patient meet any 2 criteria? No. Patient's initial sepsis screen is negative. Does the patient have a suspected source of infection? No. Patient's initial sepsis screen is negative. Risk Assessment: Do you want to hurt yourself or someone else? Patient reports no desire to harm self or others. Onset of symptoms was September 06, 2023 at 13:00. 20:28 Method Of Arrival: Ambulatory tl4 20:28 Acuity: MAL 4 tl4 Triage Assessment: 20:32 General: Appears in no apparent distress. Behavior is calm, cooperative. Pain: tl4 Complains of pain in right leg. EENT: No deficits noted. No signs and/or symptoms were reported regarding the EENT system. Neuro: No deficits noted. Denies weakness dizziness, numbness headache. Cardiovascular: No deficits noted. Denies chest pain, diaphoresis, lightheadedness, palpitations. Respiratory: No deficits noted. Breath sounds are clear bilaterally. Denies cough, shortness of breath. GI: No deficits noted. No signs and/or symptoms were reported involving the gastrointestinal system. : No deficits noted. No signs and/or symptoms were reported regarding the genitourinary system. Derm: No deficits noted. No signs and/or symptoms reported regarding the dermatologic system. Musculoskeletal: Reports pain in right leg. Injury Description: unable to visualize. 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 - Social history:: Smoking status: Patient reports the use of cigarette tobacco products, smokes one-half pack cigarettes per day. Screenin:41 [facility] ED Fall Risk Assessment (Adult) History of falling in the last 3 months, tl4 including since admission No falls in past 3 months (0 pts) Confusion or Disorientation No (0 pts) Intoxicated or Sedated No (0 pts) Impaired Gait No (0 pts) Mobility Assist Device Used No (0 pt) Altered Elimination No (0 pt) Score/Fall Risk Level 0 - 2 = Low Risk Oriented to surroundings, Maintained a safe environment, Educated pt \T\ family on fall prevention, incl call for assistance when getting out of bed, Assessed \T\ reinforced patient's understanding of fall precautions, Provided non-skid footwear, Hourly rounding (assess needs \T\ fall precautionary measures) done, Used ambulatory aids as needed (educated on \T\ assisted with), Used gait belt as appropriate. Abuse screen: Denies threats or abuse. Denies injuries from another. Nutritional screening: No deficits noted. Tuberculosis screening: No symptoms or risk factors identified. Assessment: 22:46 Reassessment: No changes from previously documented assessment. Patient and/or family tl4 updated on plan of care and expected duration. Pain level reassessed. Patient is alert, oriented x 3, equal unlabored respirations, skin warm/dry/pink. 23:45 General: Appears uncomfortable, Behavior is calm, cooperative. Pain: Complains of pain ha1 in right german Pain does not radiate. Pain currently is 8 out of 10 on a pain scale. Quality of pain is described as sharp, throbbing, Pain began suddenly. Neuro: Level of Consciousness is awake, alert, obeys commands, Oriented to person, place, time, situation. Cardiovascular: Capillary refill < 3 seconds Patient's skin is warm and dry. Cardiovascular: Pulses are all present. Respiratory: Airway is patent Respiratory effort is even, unlabored, Respiratory pattern is regular, symmetrical. Derm: LACERATION RIGHT LOWER LEG. Musculoskeletal: Circulation, motion, and sensation intact. Range of motion: intact in all extremities. Injury Description: Laceration sustained to right german is full thickness, 2.6 to 7.5 cm long, bleeding moderately, SMALL PIECES OF METAL IN THE WOUND. 09/07 00:00 Reassessment: COMPLETED WOUND CARE AND DEBRIDEMENT. APPLIED WOUND DRESSING. ha1 01:00 Reassessment: Patient and/or family updated on plan of care and expected duration. Pain ha1 level reassessed. Patient is alert, oriented x 3, equal unlabored respirations, skin warm/dry/pink. Vital Signs: 09/06 20:28 BP 133 / 74; Pulse 76; Resp 16; Temp 98.2(O); Pulse Ox 98% ; Weight 77.11 kg; Height 5 tl4 ft. 5 in. ; Pain /; 09/07 00:00 BP 129 / 71; Pulse 65; Resp 17 S; Pulse Ox 99% on R/A; ha1 01:00 BP 134 / 65; Pulse 60; Resp 17 S; Temp 98.2; Pulse Ox 99% on R/A; ha1 02 20:28 Body Mass Index 28.29 (77.11 kg, 165.1 cm) tl4 02 20:28 Pain Scale: Adult tl4 ED Course: 09/06 20:27 Patient arrived in ED. tl4 20:28 Patient has correct armband on for positive identification. Placed in gown. Bed in low ha1 position. Call light in reach. Side rails up X 1. 20:29 Benton Rodriguez PA is PHCP. cp 20:29 Valente Pereira MD is Attending Physician. cp 20:30 Triage completed. tl4 20:31 Arm band placed on right wrist. tl4 22:25 XRAY Tib Fib RIGHT In Process Unspecified. EDMS 09/07 00:13 Karyn Muniz RN is Primary Nurse. ha1 00:46 Barry Hurley MD is Referral Physician. cp 01:25 Provided Education on: WOUND CARE AND FOLLOW UPS . ha1 01:30 No provider procedures requiring assistance completed. ha1 01:30 Patient did not have IV access during this emergency room visit. ha1 Administered Medications: 09/06 22:39 Drug: Tetanus-Diphtheria Toxoid IM Adult 0.5 ml IM once; Provide Vaccine Information tl4 Statement (VIS). {Personal Shopper: [employer]; Exp: WedDec 15 2024; Lot #: [id number]; Series: 1 of 1; Patient Consent: Obtained; Date/Time: ; Source Name: Mauri Hurley; Source Relationship: Self; Address Information: [address] [place] [address] [address], [facility] [address]; ; Education: Provided; VIS Presented Date: ; VIS Publication: Tetanus/Diphtheria (Td) Vaccine VIS 11/03/2016 (historic)} Route: IM; Site: left deltoid; 23:20 Follow up: Response: No adverse reaction ha1 23:51 Follow up: Response: No adverse reaction tl4 22:40 Drug: Ibuprofen PO 800 mg PO once Route: PO; tl4 23:50 Follow up: Response: Pain is decreased tl4 23:50 Drug: Sodium Chloride 0.9% IVPB 500 ml IVPB once {Note: USED TO IRRIGATE WOUND.} Route: ha1 IVPB; Site: Other; 09/07 00:00 Follow up: Response: No adverse reaction; IV Status: Completed infusion ha1 00:13 Drug: Lidocaine Infiltration (2 %) 10 ml 5 ml Infiltration once; to bedside {Note: ha1 ADMINISTERED BY PAGE .} Volume: 5 ml; Route: Infiltration; 00:35 Follow up: Response: No adverse reaction ha1 00:24 Drug: Lidocaine Infiltration (2 %) 5 mg Infiltration once {Note: ADMINISTERED BY JESSIKA ha1 .} Route: Infiltration; :31 Follow up: Response: No adverse reaction ha1 01:15 Drug: Trimethoprim-Sulfamethoxazole PO (160 mg-800 mg (DS) 1 tablet PO once Route: PO; ha1 01:31 Follow up: Response: No adverse reaction ha1 01:15 Drug: Cephalexin PO 500 mg PO once Route: PO; ha1 01:30 Follow up: Response: No adverse reaction ha1 Medication: 09/06 22:40 Vaccine Information Statement (VIS) provided today. Questions and/or concerns tl4 addressed. VIS edition date: February 28, 2021. Outcome: 09/07 00:48 Discharge ordered by . cp 01:30 Patient left the ED. ha1 01:30 Discharged to home via wheelchair, with family, ha1 01:30 Condition: stable 01:30 Discharge instructions given to patient, family, Instructed on discharge instructions, follow up and referral plans. medication usage, Demonstrated understanding of instructions, follow-up care, medications, Prescriptions given X 3, Signatures: Dispatcher [employer] EDMS Benton Rodriguez PA PA cp Ayala, Heidy RN RN ha1 Edson Cordero RN RN tl4
[2023-09-07 01:44] VITALS: BP 133/74; TEMP 98.2; O2SAT 98
== END ==
LOC: ER 20:23
PROC: 0HQKXZZ Repair Right Lower Leg Skin, External Approach (ICD-10-PCS; principal; 2023-09-06)
DX: S81.821A Laceration with foreign body, right lower leg, initial encounter (principal); Z23 Encounter for immunization
CPT/HCPCS: 73590; 12002; J2001